=== PATIENT | female | born 1990 | race American Indian/Alaskan Native ===

== ENCOUNTER 2018-04-24 17:05 | Emergency (ER) | payer SELFPAY ==
[2018-04-24 17:19] VITALS: BP 114/75
[2018-04-24 18:03] LABS: HCG Qualitative,Urine Negative (Negative)
[2018-04-24 18:04] LABS: Bacteria,Urine 2+ /HPF (Negative); Bilirubin,Urine NEG (Negative); Blood,Urine NEG (Negative); Color,Urine Amber (Yellow); Mucus,Urine 3+ /HPF
[2018-04-24 18:06] LABS: Urobilinogen,Urine < 2.0 mg/dL (<2.0)
== END 2018-04-24 19:17 | disposition left against medical advice (07) ==
LOC: ED 17:05
DX: R10.9 Unspecified abdominal pain (principal); Z53.21 Procedure and treatment not carried out due to patient leaving prior to being seen by health care provider
CPT/HCPCS: 81001; 81025

== ENCOUNTER 2018-09-18 21:03 | Inpatient (IN) | payer OTHER ==
--- NOTE | 2018-09-18 21:18 | Emergency Department Report ---
Chief Complaint: Abdominal Pain Stated Complaint: ABDOMINAL PAIN, VOMITING Time Seen by Provider: 09/18/18 21:14 - HPI History of Present Illness: This is a 27 y.o. female that presents with abdominal pain and vomiting that started a few hours ago. - ROS Review of Systems: Abdominal pain and vomiting - Exam Vital Signs: Vital Signs 09/18/18 21:15 Temperature 98.2 F Pulse Rate 70 Respiratory 18 Rate Blood Pressure 136/93 [Left] O2 Sat by Pulse 100 Oximetry MSE screening note: Focused history and physical exam performed. Due to findings the following was ordered: Labs ACC for further evaluation. ED Disposition for MSE Condition: Stable Instructions: Abdominal Pain (ED)
[2018-09-18 21:51] LABS: Basophils % (Auto) 0.3 % (0.0-1.8); Eosinophils # (Auto) 0.2 K/mm3 (0.0-0.4); Eosinophils % (Auto) 1.8 % (0.0-4.3); Hematocrit 39.7 % (30.3-42.9); Hemoglobin 13.7 gm/dl (10.1-14.3); Lymphocytes # (Auto) 1.6 K/mm3 (1.2-5.4); Lymphocytes % (Auto) 17.8 % (13.4-35.0); Mean Corpuscular HGB Conc 35 % (30-34); Mean Corpuscular Volume 90 fl (79-97); Monocytes % (Auto) 11.1 % (0.0-7.3); Platelet Count 315 K/mm3 (140-440); Red Cell Distribution Width 13.3 % (13.2-15.2)
[2018-09-18 22:14] LABS: Bilirubin,Urine NEG (Negative); Blood,Urine NEG (Negative); Color,Urine Yellow (Yellow); Mucus,Urine 3+ /HPF; Protein,Urine <15 mg/dL mg/dL (Negative)
[2018-09-18 22:22] LABS: Alanine Aminotransferase 23 units/L (7-56); Albumin 4.1 g/dL (3.9-5); BUN/Creatinine Ratio 22; Blood Urea Nitrogen 13 mg/dL (7-17); Calcium 8.8 mg/dL (8.4-10.2); Hemolysis Index 7
--- NOTE | 2018-09-18 23:30 | Emergency Department Report ---
ED Abdominal Pain HPI - General Chief Complaint: Abdominal Pain Stated Complaint: ABDOMINAL PAIN, VOMITING Time Seen by Provider: 09/18/18 23:15 Source: patient Mode of arrival: Ambulatory Limitations: No Limitations - History of Present Illness Initial Comments: KHADAR is a 27-year-old female that presents to emergency room with complaints of nausea vomiting diarrhea 1 week and abdominal pain that started at 1930 this evening. Patient states she has not seen anybody for her GI symptoms because she thought it was going to go and is on. Patient states she has not held anything down for 7 days. Patient states that the abdominal pain is generalized but is more in her bilateral lower quadrants. Patient states the pain is a 10 out of 10 and is worsening. Patient states the pain is better with rest and worse with movement and palpation. Patient states that the pain is also worse with vomiting. Patient denies fever and chills. MD Complaint: abdominal pain -: Sudden Location: diffuse Radiation: none Severity scale (0 -10): 10 Quality: stabbing Consistency: constant Improves With: rest Worsens With: eating, vomiting, movement Context: sick contacts Associated Symptoms: nausea, vomiting, diarrhea. denies: fever, chills, constipation, dysuria, hematemesis, hematochezia, melena, hematuria, anorexia, syncope - Related Data Home Medications Medication Instructions Recorded Confirmed Last Taken No Known Home Medications [No 09/19/18 09/19/18 Unknown Reported Home Medications] Allergies Allergy/AdvReac Type Severity Reaction Status Date / Time No Known Allergies Allergy Unverified 04/24/18 17:19 ED Review of Systems ROS: Stated complaint: ABDOMINAL PAIN, VOMITING Other details as noted in HPI Constitutional: denies: chills, fever Eyes: denies: eye pain, eye discharge, vision change ENT: denies: ear pain, throat pain Respiratory: denies: cough, shortness of breath, wheezing Cardiovascular: denies: chest pain, palpitations Endocrine: no symptoms reported Gastrointestinal: abdominal pain, nausea, vomiting, diarrhea Genitourinary: denies: urgency, dysuria, discharge Musculoskeletal: denies: back pain, joint swelling, arthralgia Skin: denies: rash, lesions Neurological: denies: headache, weakness, paresthesias Psychiatric: denies: anxiety, depression Hematological/Lymphatic: denies: easy bleeding, easy bruising ED Past Medical Hx - Past Medical History Previous Medical History?: No - Surgical History Past Surgical History?: No - Family History Family history: no significant - Social History Smoking Status: Current Every Day Smoker Substance Use Type: None - Medications Home Medications: Home Medications Medication Instructions Recorded Confirmed Last Taken Type No Known Home Medications [No 09/19/18 09/19/18 Unknown History Reported Home Medications] ED Physical Exam - General Limitations: No Limitations General appearance: alert, in no apparent distress - Head Head exam: Present: atraumatic, normocephalic - Eye Eye exam: Present: normal appearance - ENT ENT exam: Present: mucous membranes dry - Neck Neck exam: Present: normal inspection - Respiratory Respiratory exam: Present: normal lung sounds bilaterally. Absent: respiratory distress - Cardiovascular Cardiovascular Exam: Present: regular rate, normal rhythm. Absent: systolic murmur, diastolic murmur, rubs, gallop - GI/Abdominal GI/Abdominal exam: Present: soft, tenderness (bilateral lower quadrant tenderness to palpation), normal bowel sounds - Extremities Exam Extremities exam: Present: normal inspection - Back Exam Back exam: Present: normal inspection - Neurological Exam Neurological exam: Present: alert, oriented X3 - Psychiatric Psychiatric exam: Present: normal affect, normal mood - Skin Skin exam: Present: warm, dry, intact, normal color. Absent: rash ED Course Vital Signs 09/18/18 09/18/18 09/19/18 21:15 23:07 02:17 Temperature 98.2 F 98.2 F Pulse Rate 70 66 Respiratory 18 16 16 Rate Blood Pressure 136/93 127/92 [Left] O2 Sat by Pulse 100 98 Oximetry - Reevaluation(s) Reevaluation #1: Discussed plan of care and labs and results with patient. Patient agrees with plan of care and admission. Patient admitted to the hospitalist service. 09/19/18 01:30 - Consultations Consultation #1: Hospitalist consulted for admission. Hospitalist admit patient. Hospitalist to assume care patient. 09/19/18 01:37 ED Medical Decision Making - Lab Data Result diagrams: 09/18/18 21:27 09/18/18 21:27 - Radiology Data Radiology results: report reviewed PROCEDURE: CT ABDOMEN PELVIS WO CON TECHNIQUE: Computerized axial tomography of the abdomen and pelvis was performed without intravenous contrast. This study is performed without intravascular contrast material and its sensitivity for abdominal and pelvic pathology, including neoplasms, inflammation, abscess, free fluid, thrombosis, arterial dissection and infarction, is reduced compared with a contrast enhanced study. HISTORY: abd pain COMPARISONS: None . FINDINGS: Lower Lung trimble: No focal abnormalities seen. Upper Abdomen: The liver, gallbladder, the adrenal glands, the unenhanced images of the pancreas and spleen are unremarkable. Kidneys, Ureters and Urinary bladder: No abnormalities are seen. Retroperitoneum: Abdominal aorta appears normal. Nonspecific subcentimeter lymph nodes are seen in the retroperitoneum. No pathologically enlarged lymph nodes are identified. Bowel: The montejo of the right side of the colon, the hepatic flexure, the transverse colon, the splenic flexure and descending colon show diffuse wall thickening. There is prominence of the submucosal layer. The appearance suggest a diffuse nonspecific colitis. I do not see evidence of bowel obstruction. There is no free intraperitoneal gas. A small amount of nonspecific free fluid is present in the cul-de-sac. Normal-appearing appendix is seen in the right lower quadrant. Reproductive organs: Uterus and adnexa are unremarkable. Other: No acute bone abnormalities are seen. IMPRESSION: Abnormal wall thickening prominence of the submucosal layer right side of the colon transverse colon and the descending colon suggesting nonspecific diffuse colitis. No evidence of bowel obstruction. Bowel loops otherwise are unremarkable. No other abnormalities are identified. - Medical Decision Making pt is a 27-year-old female that presents to emergency room with abdominal pain and intractable nausea vomiting. Patient unable to tolerate by mouth intake and has not held any food down for 7 days. Patient was admitted to the hospitalist service for further evaluation and treatment. Patient's CT done and is positive for colitis. Patient's labs unremarkable except for a UTI. Patient given Zosyn. Patient given IV fluids and Zofran - Differential Diagnosis abd pain. n.v.d. gastroentertiis. colitis Critical Care Time: Yes Critical care attestation.: If time is entered above; I have spent that time in minutes in the direct care o f this critically ill patient, excluding procedure time. Critical Care Time: 35 minutes ED Disposition Clinical Impression: Colitis, Dehydration Abdominal pain Qualifiers: Abdominal location: generalized Qualified Code(s): R10.84 - Generalized abdominal pain Intractable nausea and vomiting Qualifiers: Vomiting type: unspecified Qualified Code(s): R11.2 - Nausea with vomiting, unspecified Disposition: OP ADMIT IP TO THIS HOSP Is pt being admited?: Yes Does the pt Need Aspirin: No Condition: Critical Time of Disposition: 01:37
--- NOTE | 2018-09-19 00:31 | Cat Scan Report ---
PROCEDURE: CT ABDOMEN PELVIS WO CON TECHNIQUE: Computerized axial tomography of the abdomen and pelvis was performed without intravenous contrast. This study is performed without intravascular contrast material and its sensitivity for ab dominal and pelvic pathology, including neoplasms, inflammation, abscess, free fluid, thrombosis, art erial dissection and infarction, is reduced compared with a contrast enhanced study. HISTORY: abd pain COMPARISONS: None . FINDINGS: Lower Lung trimble: No focal abnormalities seen. Upper Abdomen: The liver, gallbladder, the adrenal glands, the unenhanced images of the pancreas and spleen are unremarkable. Kidneys, Ureters and Urinary bladder: No abnormalities are seen. Retroperitoneum: Abdominal aorta appears normal. Nonspecific subcentimeter lymph nodes are seen in the retroperitoneum. No pathologically enlarged ly mph nodes are identified. Bowel: The montejo of the right side of the colon, the hepatic flexure, the transverse colon, the sple shelley flexure and descending colon show diffuse wall thickening. There is prominence of the submucosal layer. The appearance suggest a diffuse nonspecific colitis. I do not see evidence of bowel obstructi on. There is no free intraperitoneal gas. A small amount of nonspecific free fluid is present in the cul-de-sac. Normal-appearing appendix is seen in the right lower quadrant. Reproductive organs: Uterus and adnexa are unremarkable. Other: No acute bone abnormalities are seen. IMPRESSION: Abnormal wall thickening prominence of the submucosal layer right side of the colon transverse colon and the descending colon suggesting nonspecific diffuse colitis. No evidence of bowel obstruction. Jay wel loops otherwise are unremarkable. No other abnormalities are identified. This document is electronically signed by Win Lal MD., September 19 2018 12:29:07 AM ET
[2018-09-19] MEDS ORDERED: NACL 0.9% 1000 ML 1,000 ML IV ONE (01:28)
[2018-09-19] MEDS ORDERED: ZOFRAN IV ONE (01:28)
[2018-09-19] MEDS ORDERED: ZOSYN/NS 4.5GM/100ML 4.5 GM/100 ML VIAL IV ONE (01:35)
[2018-09-19] MEDS ORDERED: TYLENOL PO PRN (02:10)
[2018-09-19] MEDS ORDERED: SODIUM CHLORIDE FLUSH SYRINGE 10 ML IV PRN (02:10)
[2018-09-19] MEDS ORDERED: ZOFRAN IV PRN (02:10)
[2018-09-19] MEDS: MORPHINE IV PRN ×2 (02:17→06:44)
--- NOTE | 2018-09-19 02:34 | History and Physical Report ---
<AILIN SAM - Last Filed: 09/19/18 04:33> History of Present Illness Date of examination: 09/19/18 Date of admission: 09/19/2018 Chief complaint: Abdominal pain, nausea and vomiting 1 daily History of present illness: Patient is a 27-year-old female with no prior medical history who presents to the ER with complaints of nausea and vomiting 1 week and abdominal pain starting tonight. Patient states that she has been having nausea and vomiting at home for one week she, relates the symptoms to her child's who had similar symptoms during the week (7-year-old in school and daycare). Patient states that the pain is an intense cramp-like pain, located in the della-umbilical area, associated with significant cramping, patient states she has been unable to tolerate any food or drink for at least a week, she states that she threw up everything she ate. Patient also states that she missed many working days due to the symptoms, she denies any diarrhea, denies any fever, denies chills, denies any recent traveling, reports on ill contact. Pt had a CT scan of the abdomen and pelvis in the ER that showed abnormal wall thickening prominence of the submucosal layer right side of the transverse colon and descending colon suggesting diffuse colitis, patient is admitted for treatment of acute colitis. Past History Past Medical History: No medical history Past Surgical History: No surgical history. denies: valve replacement Social history: no significant social history Family history: no significant family history Medications and Allergies Allergies Allergy/AdvReac Type Severity Reaction Status Date / Time No Known Allergies Allergy Unverified 04/24/18 17:19 Home Medications Medication Instructions Recorded Confirmed Last Taken Type No Known Home Medications [No 09/19/18 09/19/18 Unknown History Reported Home Medications] Active Meds: Active Medications Acetaminophen (Tylenol) 650 mg PO Q4H PRN PRN Reason: Pain MILD(1-3)/Fever >100.5/URBINA Enoxaparin Sodium (Lovenox) 40 mg SUB-Q QDAY TIKI Famotidine (Pepcid) 20 mg IV BID TIKI Dextrose/Sodium Chloride (D5/0.45ns) 1,000 mls @ 75 mls/hr IV DIRECT TIKI Morphine Sulfate (Morphine) 2 mg IV Q4H PRN PRN Reason: Pain, Moderate (4-6) Last Admin: 09/19/18 02:17 Dose: 2 mg Documented by: Ondansetron HCl (Zofran) 4 mg IV Q8H PRN PRN Reason: Nausea And Vomiting Sodium Chloride (Sodium Chloride Flush Syringe 10 Ml) 10 ml IV BID TIKI Sodium Chloride (Sodium Chloride Flush Syringe 10 Ml) 10 ml IV PRN PRN PRN Reason: LINE FLUSH Review of Systems Gastrointestinal: abdominal pain, nausea, vomiting Exam - Constitutional Vitals: Temp Pulse Resp BP Pulse Ox 98.2 F 66 16 127/92 98 09/18/18 23:07 09/18/18 23:07 09/19/18 02:17 09/18/18 23:07 09/18/18 23:07 General appearance: Present: no acute distress - EENT Eyes: Present: EOM intact ENT: hearing intact - Neck Neck: Present: normal ROM - Respiratory Respiratory effort: normal Respiratory: bilateral: CTA - Cardiovascular Rhythm: regular - Extremities Extremities: no ischemia Peripheral Pulses: within normal limits - Abdominal General gastrointestinal: Present: deferred Localized gastrointestinal: tender: LLQ, epigastric periumbilical Female genitourinary: Present: deferred - Rectal Rectal Exam: deferred - Integumentary Integumentary: Present: warm, dry - Musculoskeletal Musculoskeletal: strength equal bilaterally - Psychiatric Psychiatric: appropriate mood/affect - Neurologic Neurologic: moves all extremities Results - Labs CBC & Chem 7: 09/18/18 21:27 09/18/18 21:27 Labs: Laboratory Last Values WBC 8.9 K/mm3 (4.5-11.0) 09/18/18 21: RBC 4.40 M/mm3 (3.65-5.03) 09/18/18 21:27 Hgb 13.7 gm/dl (10.1-14.3) 09/18/18 21: Hct 39.7 % (30.3-42.9) 09/18/18 21: MCV 90 fl (79-97) 09/18/18 21: MCH 31 pg (28-32) 09/18/18 21: MCHC 35 % (30-34) H 09/18/18 21: RDW 13.3 % (13.2-15.2) 09/18/18 21: Plt Count 315 K/mm3 (140-440) 09/18/18 21: Lymph % (Auto) 17.8 % (13.4-35.0) 09/18/18 21: Hall % (Auto) 11.1 % (0.0-7.3) H 09/18/18 21:27 Eos % (Auto) 1.8 % (0.0-4.3) 09/18/18 21: Baso % (Auto) 0.3 % (0.0-1.8) 09/18/18 21: Lymph # 1.6 K/mm3 (1.2-5.4) 09/18/18 21: Hall # 1.0 K/mm3 (0.0-0.8) H 09/18/18 21: Eos # 0.2 K/mm3 (0.0-0.4) 09/18/18 21: Baso # 0.0 K/mm3 (0.0-0.1) 09/18/18 21: Seg Neutrophils % 69.0 % (40.0-70.0) 09/18/18 21: Seg Neutrophils # 6.1 K/mm3 (1.8-7.7) 09/18/18 21: Sodium 141 mmol/L (137-145) 09/18/18 21: Potassium 3.9 mmol/L (3.6-5.0) 09/18/18 21: Chloride 102.5 mmol/L (98-107) 09/18/18 21: Carbon Dioxide 27 mmol/L (22-30) 09/18/18: Anion Gap 15 mmol/L 09/18/18 21: BUN 13 mg/dL (7-17) 09/18/18 21: Creatinine 0.6 mg/dL (0.7-1.2) L 09/18/18 21: Estimated GFR > 60 ml/min 09/18/18 21: BUN/Creatinine Ratio 22 % 09/18/18 21: Glucose 89 mg/dL (65-100) 09/18/18 21: Calcium 8.8 mg/dL (8.4-10.2) 09/18/18 21: Total Bilirubin 0.30 mg/dL (0.1-1.2) 09/18/18 21: AST 23 units/L (5-40) 09/18/18: ALT 23 units/L (7-56) 09/18/18: Alkaline Phosphatase 63 units/L (35-129) 09/18/18: Total Protein 7.4 g/dL (6.3-8.2) 09/18/18: Albumin 4.1 g/dL (3.9-5) 09/18/18: Albumin/Globulin Ratio 1.2 % 09/18/18: Lipase 24 units/L (13-60) 09/18/18: HCG, Qual Negative (Negative) 09/18/18: Urine Color Yellow (Yellow) 09/18/18: Urine Turbidity Slightly-cloudy (Clear) 09/18/18: Urine pH 6.0 (5.0-7.0) 09/18/18: Ur Specific Burwell 1.032 (1.003-1.030) H 09/18/18: Urine Protein <15 mg/dl mg/dL (Negative) 09/18/18: Urine Glucose (UA) Neg mg/dL (Negative) 09/18/18: Urine Ketones Tr mg/dL (Negative) 09/18/18: Urine Blood Neg (Negative) 09/18/18: Urine Nitrite Neg (Negative) 09/18/18: Urine Bilirubin Neg (Negative) 09/18/18: Urine Urobilinogen 4.0 mg/dL (<2.0) 09/18/18: Ur Leukocyte Esterase Tr (Negative) 09/18/18: Urine WBC (Auto) 4.0 /HPF (0.0-6.0) 09/18/18: Urine RBC (Auto) 3.0 /HPF (0.0-6.0) 09/18/18: U Epithel Cells (Auto) 8.0 /HPF (0-13.0) 09/18/18: Urine Mucus 3+ /HPF 09/18/18: Assessment and Plan Assessment and plan: 1. Acute Diffuse colitis (transverse and sigmoid colon) 2. Abdominal pain (likely due to above) 3. Nausea and vomiting (likely due to colitis) 4. Dehydration Plan: Patient is admitted for acute colitis Normal saline 125 per hour for hydration Metronidazole 500 every 8 hours Pain control with morphine PRN Protonix IV daily Consult GI for evaluation DVT prophylaxis with SD Plan of care discussed with patient, voiced understanding Patient's condition and plan of care discussed with Dr. Escoto Advance Directives: Yes VTE prophylaxis?: Mechanical Plan of care discussed with patient/family: Yes <STIVEN ESCOTO - Last Filed: 09/19/18 05:41> History of Present Illness Date of admission: 09/19/18 02:11 Medications and Allergies Active Meds: Active Medications Acetaminophen (Tylenol) 650 mg PO Q4H PRN PRN Reason: Pain MILD(1-3)/Fever >100.5/URBINA Enoxaparin Sodium (Lovenox) 40 mg SUB-Q QDAY TIKI Dextrose/Sodium Chloride (D5/0.45ns) 1,000 mls @ 75 mls/hr IV DIRECT TIKI Last Admin: 09/19/18 05:33 Dose: 75 mls/hr Documented by: Metronidazole (Flagyl 500 Mg/100 Ml) 500 mg in 100 mls @ 100 mls/hr IV Q8HR TIKI; Protocol Levofloxacin/Dextrose (Levaquin 750mg/150ml) 750 mg in 150 mls @ 100 mls/hr IV Q24HR TIKI; Protocol Morphine Sulfate (Morphine) 2 mg IV Q4H PRN PRN Reason: Pain, Moderate (4-6) Last Admin: 09/19/18 02:17 Dose: 2 mg Documented by: Ondansetron HCl (Zofran) 4 mg IV Q8H PRN PRN Reason: Nausea And Vomiting Pantoprazole Sodium (Protonix) 40 mg IV BID TIKI Sodium Chloride (Sodium Chloride Flush Syringe 10 Ml) 10 ml IV BID TIKI Sodium Chloride (Sodium Chloride Flush Syringe 10 Ml) 10 ml IV PRN PRN PRN Reason: LINE FLUSH Exam - Constitutional Vitals: Temp Pulse Resp BP Pulse Ox 98.2 F 66 16 107/66 98 09/18/18 23:07 09/18/18 23:07 09/19/18 02:17 09/19/18 03:00 09/19/18 03:00 Results - Labs CBC & Chem 7: 09/18/18 21:27 09/18/18 21:27 Labs: Laboratory Last Values WBC 8.9 K/mm3 (4.5-11.0) 09/18/18: RBC 4.40 M/mm3 (3.65-5.03) 09/18/18: Hgb 13.7 gm/dl (10.1-14.3) 09/18/18: Hct 39.7 % (30.3-42.9) 09/18/18: MCV 90 fl (79-97) 09/18/18: MCH 31 pg (28-32) 09/18/18: MCHC 35 % (30-34) H 09/18/18: RDW 13.3 % (13.2-15.2) 09/18/18: Plt Count 315 K/mm3 (140-440) 09/18/18: Lymph % (Auto) 17.8 % (13.4-35.0) 09/18/18: Hall % (Auto) 11.1 % (0.0-7.3) H 09/18/18: Eos % (Auto) 1.8 % (0.0-4.3) 09/18/18: Baso % (Auto) 0.3 % (0.0-1.8) 09/18/18: Lymph # 1.6 K/mm3 (1.2-5.4) 09/18/18: Hall # 1.0 K/mm3 (0.0-0.8) H 09/18/18: Eos # 0.2 K/mm3 (0.0-0.4) 09/18/18: Baso # 0.0 K/mm3 (0.0-0.1) 09/18/18: Seg Neutrophils % 69.0 % (40.0-70.0) 09/18/18: Seg Neutrophils # 6.1 K/mm3 (1.8-7.7) 09/18/18: Sodium 141 mmol/L (137-145) 09/18/18: Potassium 3.9 mmol/L (3.6-5.0) 09/18/18: Chloride 102.5 mmol/L (98-107) 09/18/18 21: Carbon Dioxide 27 mmol/L (22-30) 09/18/18 21: Anion Gap 15 mmol/L 09/18/18 21: BUN 13 mg/dL (7-17) 09/18/18 21: Creatinine 0.6 mg/dL (0.7-1.2) L 09/18/18 21: Estimated GFR > 60 ml/min 09/18/18 21: BUN/Creatinine Ratio 22 % 09/18/18 21: Glucose 89 mg/dL (65-100) 09/18/18 21: Calcium 8.8 mg/dL (8.4-10.2) 09/18/18 21: Total Bilirubin 0.30 mg/dL (0.1-1.2) 09/18/18 21: AST 23 units/L (5-40) 09/18/18 21: ALT 23 units/L (7-56) 09/18/18 21: Alkaline Phosphatase 63 units/L (35-129) 09/18/18 21: Total Protein 7.4 g/dL (6.3-8.2) 09/18/18 21: Albumin 4.1 g/dL (3.9-5) 09/18/18 21: Albumin/Globulin Ratio 1.2 % 09/18/18 21: Lipase 24 units/L (13-60) 09/18/18 21: HCG, Qual Negative (Negative) 09/18/18: Urine Color Yellow (Yellow) 09/18/18 21: Urine Turbidity Slightly-cloudy (Clear) 09/18/18 21: Urine pH 6.0 (5.0-7.0) 09/18/18 21: Ur Specific Burwell 1.032 (1.003-1.030) H 09/18/18 21: Urine Protein <15 mg/dl mg/dL (Negative) 09/18/18 21: Urine Glucose (UA) Neg mg/dL (Negative) 09/18/18 21: Urine Ketones Tr mg/dL (Negative) 09/18/18 21: Urine Blood Neg (Negative) 09/18/18 21: Urine Nitrite Neg (Negative) 09/18/18 21: Urine Bilirubin Neg (Negative) 09/18/18 21: Urine Urobilinogen 4.0 mg/dL (<2.0) 09/18/18 21: Ur Leukocyte Esterase Tr (Negative) 09/18/18 21: Urine WBC (Auto) 4.0 /HPF (0.0-6.0) 09/18/18 21: Urine RBC (Auto) 3.0 /HPF (0.0-6.0) 09/18/18 21: U Epithel Cells (Auto) 8.0 /HPF (0-13.0) 09/18/18 21: Urine Mucus 3+ /HPF 09/18/18 21:29 Assessment and Plan Assessment and plan: 27 year year-old woman with no medical problems emergency room with complaints of sharp abdominal pain, diffuse, nausea vomiting and diarrhea 1 week. Physical exam is significant for abdominal tenderness, no rebound or tenderness. Her CAT scan is significant for diffuse colitis, agree with plan as discussed above, in addition start IV morphine, Levaquin, stool cultures, C. difficile
[2018-09-19] MEDS ORDERED: MORPHINE IV PRN (04:57)
[2018-09-19] MEDS: D5/0.45NS 1,000 ML IV SCH ×2 (05:33→22:00)
[2018-09-19] MEDS: FLAGYL 500 MG/100 ML 500 MG/100 ML BAG IV SCH ×3 (06:08→22:00)
--- NOTE | 2018-09-19 09:19 | Gastroenterology Consultation ---
History of Present Illness - Reason for Consult Consult date: 09/19/18 Colitis Requesting physician: DAY HILL III - History of Present Illness The patient is a 27 yo female admitted with acute colitis. She has no GI hx, with generally regular BMs and no chronic pain. Her 7 yo daughter has had a recent episode of severe diarrhea (but no N/V) at home, but had no fevers, chills, and was "getting better." However, about 1 week ago, the patient began to have loose/watery BMs (>7/day) with severe nonbloody emesis; she has associated crampy diffuse abdominal pain, that is pelvic and feels like menstrual cycles. She has been unable to eat for the last several days due to the discomfort (though creatinine normal on admit). Since admit and IV fluids, her nausea is gone and she would like to try PO food/fluids. She has not used any recent abx, nor been hospitalized; there is no hx of C diff. She has had no raw food consumption, nor foreign travel recently. Past History Past Medical History: No medical history Past Surgical History: No surgical history Social history: lives with family, smoking. denies: alcohol abuse, prescription drug abuse Family history: no significant family history Medications and Allergies Allergies Allergy/AdvReac Type Severity Reaction Status Date / Time No Known Allergies Allergy Unverified 04/24/18 17:19 Home Medications Medication Instructions Recorded Confirmed Last Taken Type No Known Home Medications [No 09/19/18 09/19/18 Unknown History Reported Home Medications] Active Meds: Active Medications Acetaminophen (Tylenol) 650 mg PO Q4H PRN PRN Reason: Pain MILD(1-3)/Fever >100.5/URBINA Enoxaparin Sodium (Lovenox) 40 mg SUB-Q QDAY TIKI Dextrose/Sodium Chloride (D5/0.45ns) 1,000 mls @ 75 mls/hr IV DIRECT TIKI Last Admin: 09/19/18 05:33 Dose: 75 mls/hr Documented by: Metronidazole (Flagyl 500 Mg/100 Ml) 500 mg in 100 mls @ 100 mls/hr IV Q8HR TIKI; Protocol Last Admin: 09/19/18 06:08 Dose: 100 mls/hr Documented by: Levofloxacin/Dextrose (Levaquin 750mg/150ml) 750 mg in 150 mls @ 100 mls/hr IV Q24HR TIKI; Protocol Morphine Sulfate (Morphine) 2 mg IV Q4H PRN PRN Reason: Pain, Moderate (4-6) Last Admin: 09/19/18 06:44 Dose: 2 mg Documented by: Ondansetron HCl (Zofran) 4 mg IV Q8H PRN PRN Reason: Nausea And Vomiting Pantoprazole Sodium (Protonix) 40 mg IV BID TIKI Sodium Chloride (Sodium Chloride Flush Syringe 10 Ml) 10 ml IV BID TIKI Sodium Chloride (Sodium Chloride Flush Syringe 10 Ml) 10 ml IV PRN PRN PRN Reason: LINE FLUSH I have reviewed and reconciled medications. Review of Systems - Review of Systems All systems: negative (as noted in the HPI.) Exam - Constitutional Vital Signs: Temp Pulse Resp BP Pulse Ox 98.2 F 56 L 18 111/79 100 09/18/18 23:07 09/19/18 06:53 09/19/18 06:53 09/19/18 06:53 09/19/18 06:53 General appearance: no acute distress - EENT Eyes: PERRL, EOM intact ENT: hearing intact, clear oral mucosa, no thrush - Neck Neck: supple, normal ROM - Respiratory Respiratory effort: normal Respiratory: bilateral: CTA - Cardiovascular Rhythm: regular Heart Sounds: Present: S1 & S2 Extremities: no ischemia, No edema - Gastrointestinal General gastrointestinal: Present: soft, tender (minimal tenderness without peritoneal signs), non-distended - Integumentary Integumentary: Present: clear, warm, dry - Neurologic Neurological: alert and oriented x3 - Labs CBC & Chem 7: 09/18/18 21:27 09/18/18 21:27 Lab Results: Laboratory Results - last 24 hr 09/18/18 09/18/18 09/18/18 21:27 21:27 21:27 WBC 8.9 RBC 4.40 Hgb 13.7 Hct 39.7 MCV 90 MCH 31 MCHC 35 H RDW 13.3 Plt Count 315 Lymph % (Auto) 17.8 [place] % (Auto) 11.1 H Eos % (Auto) 1.8 Baso % (Auto) 0.3 Lymph # 1.6 [place] # 1.0 H Eos # 0.2 Baso # 0.0 Seg Neutrophils % 69.0 Seg Neutrophils # 6.1 Sodium 141 Potassium 3.9 Chloride 102.5 Carbon Dioxide 27 Anion Gap 15 BUN 13 Creatinine 0.6 L Estimated GFR > 60 BUN/Creatinine Ratio 22 Glucose 89 Calcium 8.8 Total Bilirubin 0.30 AST 23 ALT 23 Alkaline Phosphatase 63 Total Protein 7.4 Albumin 4.1 Albumin/Globulin Ratio 1.2 Lipase 24 HCG, Qual Negative Urine Color Urine Turbidity Urine pH Ur Specific [place] Urine Protein Urine Glucose (UA) Urine Ketones Urine Blood Urine Nitrite Urine Bilirubin Urine Urobilinogen Ur Leukocyte Esterase Urine WBC (Auto) Urine RBC (Auto) U Epithel Cells (Auto) Urine Mucus 09/18/18 21:29 WBC RBC Hgb Hct MCV MCH MCHC RDW Plt Count Lymph % (Auto) [place] % (Auto) Eos % (Auto) Baso % (Auto) Lymph # [place] # Eos # Baso # Seg Neutrophils % Seg Neutrophils # Sodium Potassium Chloride Carbon Dioxide Anion Gap BUN Creatinine Estimated GFR BUN/Creatinine Ratio Glucose Calcium Total Bilirubin AST ALT Alkaline Phosphatase Total Protein Albumin Albumin/Globulin Ratio Lipase HCG, Qual Urine Color Yellow Urine Turbidity Slightly-cloudy Urine pH 6.0 Ur Specific [place] 1.032 H Urine Protein <15 mg/dl Urine Glucose (UA) Neg Urine Ketones Tr Urine Blood Neg Urine Nitrite Neg Urine Bilirubin Neg Urine Urobilinogen 4.0 Ur Leukocyte Esterase Tr Urine WBC (Auto) 4.0 Urine RBC (Auto) 3.0 U Epithel Cells (Auto) 8.0 Urine Mucus 3+ Assessment and Plan - Patient Problems (1) Acute colitis Current Visit: Yes Status: Acute Plan to address problem: - Likely infectious, but patient smoker (though I think too diffuse for ischemia) and no hx to suggest IBD. - Agree with stool studies, and flagyl/levofloxacin. - Low risk for C diff given no risk factors; suspect it's viral given preceding illness in her daughter. - Will advance diet; if vomiting controlled, could be d/c on PO abx once stool testing complete and pain/diarrhea improving.
[2018-09-19] MEDS ORDERED: PEPCID IV SCH (10:00)
[2018-09-19] MEDS ORDERED: LEVAQUIN 750MG/150ML 750 MG/150 ML BAG IV SCH (10:00)
[2018-09-19] MEDS: LOVENOX SUB-Q SCH (10:13)
[2018-09-19] MEDS: PROTONIX IV SCH ×2 (10:14→22:04)
[2018-09-19] MEDS: SODIUM CHLORIDE FLUSH SYRINGE 10 ML IV SCH ×2 (10:14→22:24)
[2018-09-19] MEDS ORDERED: PERCOCET 5/325 PO PRN (12:22)
--- NOTE | 2018-09-19 12:22 | Progress Note ---
Assessment and Plan Assessment and plan: --Acute diffuse colitis; Continue IV Levaquin and Flagyl GI evaluation noted, advised regular diet Supportive care --Obesity; BMI 32.4; advised weight reduction when medically stable --Ongoing tobacco use: Advised smoking cessation, nicotine patch as needed; --DVT prophylaxis; Lovenox Increase ambulation, advance diet as tolerated Possible discharge on oral antibiotics tomorrow if stable History Interval history: Patient seen and examined medical records reviewed Admitted with acute diffuse colitis, GI evaluation or tenderness appreciated Recommend regular diet Patient feels slightly better Denies nausea vomiting or diarrhea. Mild abdominal pain Not in acute distress Vital signs reviewed Hospitalist Physical - Constitutional Vitals: Temp Pulse Resp BP Pulse Ox 98.2 F 56 L 18 111/79 100 09/18/18 23:07 09/19/18 06:53 09/19/18 06:53 09/19/18 06:53 09/19/18 06:53 General appearance: Present: no acute distress, well-nourished, obese - EENT Eyes: Present: PERRL, EOM intact - Neck Neck: Present: supple, normal ROM - Respiratory Respiratory effort: normal Respiratory: bilateral: diminished, negative: rales, rhonchi, wheezing - Cardiovascular Rhythm: regular Heart Sounds: Present: S1 & S2 - Extremities Extremities: no ischemia, No edema - Abdominal General gastrointestinal: soft, non-tender, non-distended, normal bowel sounds - Integumentary Integumentary: Present: clear, warm - Psychiatric Psychiatric: appropriate mood/affect, cooperative - Neurologic Neurologic: CNII-XII intact, moves all extremities Results - Labs CBC & Chem 7: 09/18/18 21:27 09/18/18 21:27 Labs: Laboratory Last Values WBC 8.9 K/mm3 (4.5-11.0) 09/18/18 21: RBC 4.40 M/mm3 (3.65-5.03) 09/18/18 21: Hgb 13.7 gm/dl (10.1-14.3) 09/18/18 21:27 Hct 39.7 % (30.3-42.9) 09/18/18 21: MCV 90 fl (79-97) 09/18/18 21: MCH 31 pg (28-32) 09/18/18 21: MCHC 35 % (30-34) H 09/18/18 21: RDW 13.3 % (13.2-15.2) 09/18/18 21: Plt Count 315 K/mm3 (140-440) 09/18/18 21: Lymph % (Auto) 17.8 % (13.4-35.0) 09/18/18 21: [place] % (Auto) 11.1 % (0.0-7.3) H 09/18/18 21: Eos % (Auto) 1.8 % (0.0-4.3) 09/18/18: Baso % (Auto) 0.3 % (0.0-1.8) 09/18/18: Lymph # 1.6 K/mm3 (1.2-5.4) 09/18/18: [place] # 1.0 K/mm3 (0.0-0.8) H 09/18/18: Eos # 0.2 K/mm3 (0.0-0.4) 09/18/18: Baso # 0.0 K/mm3 (0.0-0.1) 09/18/18 21: Seg Neutrophils % 69.0 % (40.0-70.0) 09/18/18: Seg Neutrophils # 6.1 K/mm3 (1.8-7.7) 09/18/18 21: Sodium 141 mmol/L (137-145) 09/18/18 21: Potassium 3.9 mmol/L (3.6-5.0) 09/18/18: Chloride 102.5 mmol/L (98-107) 09/18/18 21: Carbon Dioxide 27 mmol/L (22-30) 09/18/18: Anion Gap 15 mmol/L 09/18/18: BUN 13 mg/dL (7-17) 09/18/18: Creatinine 0.6 mg/dL (0.7-1.2) L 09/18/18 21: Estimated GFR > 60 ml/min 09/18/18 21: BUN/Creatinine Ratio 22 % 09/18/18: Glucose 89 mg/dL (65-100) 09/18/18: Calcium 8.8 mg/dL (8.4-10.2) 09/18/18: Total Bilirubin 0.30 mg/dL (0.1-1.2) 09/18/18: AST 23 units/L (5-40) 09/18/18: ALT 23 units/L (7-56) 09/18/18: Alkaline Phosphatase 63 units/L (35-129) 09/18/18: Total Protein 7.4 g/dL (6.3-8.2) 09/18/18: Albumin 4.1 g/dL (3.9-5) 09/18/18: Albumin/Globulin Ratio 1.2 % 09/18/18: Lipase 24 units/L (13-60) 09/18/18: HCG, Qual Negative (Negative) 09/18/18: Urine Color Yellow (Yellow) 09/18/18: Urine Turbidity Slightly-cloudy (Clear) 09/18/18: Urine pH 6.0 (5.0-7.0) 09/18/18: Ur Specific [place] 1.032 (1.003-1.030) H 09/18/18: Urine Protein <15 mg/dl mg/dL (Negative) 09/18/18: Urine Glucose (UA) Neg mg/dL (Negative) 09/18/18: Urine Ketones Tr mg/dL (Negative) 09/18/18: Urine Blood Neg (Negative) 09/18/18: Urine Nitrite Neg (Negative) 09/18/18: Urine Bilirubin Neg (Negative) 09/18/18: Urine Urobilinogen 4.0 mg/dL (<2.0) 09/18/18: Ur Leukocyte Esterase Tr (Negative) 09/18/18: Urine WBC (Auto) 4.0 /HPF (0.0-6.0) 09/18/18 21: Urine RBC (Auto) 3.0 /HPF (0.0-6.0) 09/18/18: U Epithel Cells (Auto) 8.0 /HPF (0-13.0) 09/18/18:29 Urine Mucus 3+ /HPF 09/18/18 21:29 Active Medications - Current Medications Current Medications: Generic Name Dose Route Start Last Admin Trade Name Freq PRN Reason Stop Dose Admin Acetaminophen 650 mg 09/19/18 02:10 Tylenol PO Q4H PRN Pain MILD(1-3)/Fever >100.5/URBINA Enoxaparin Sodium 40 mg 09/19/18 10:00 09/19/18 10:13 Lovenox SUB-Q 40 mg QDAY TIKI Administration Dextrose/Sodium Chloride 1,000 mls @ 75 mls/hr 09/19/18 03:00 09/19/18 05:33 D5/0.45ns IV 75 mls/hr DIRECT TIKI Administration Metronidazole 500 mg in 100 mls @ 100 mls/hr 09/19/18 06:00 09/19/18 06:08 Flagyl 500 Mg/100 Ml IV 100 mls/hr Q8HR TIKI Administration Protocol Levofloxacin/Dextrose 750 mg in 150 mls @ 100 mls/hr 09/19/18 10:00 09/19/18 10:13 Levaquin 750mg/150ml IV 100 mls/hr Q24HR TIKI Administration Protocol Morphine Sulfate 2 mg 09/19/18 02:10 09/19/18 06:44 Morphine IV 2 mg Q4H PRN Administration Pain, Moderate (4-6) Ondansetron HCl 4 mg 09/19/18 02:10 Zofran IV Q8H PRN Nausea And Vomiting Pantoprazole Sodium 40 mg 09/19/18 10:00 09/19/18 10:14 Protonix IV 40 mg BID TIKI Administration Sodium Chloride 10 ml 09/19/18 10:00 09/19/18 10:14 Sodium Chloride Flush Syringe 10 Ml IV 10 ml BID TIKI Administration Sodium Chloride 10 ml 09/19/18 02:10 Sodium Chloride Flush Syringe 10 Ml IV PRN PRN LINE FLUSH
[2018-09-19] MEDS: DULCOLAX PR SCH (18:06)
[2018-09-20] MEDS: FLAGYL 500 MG/100 ML 500 MG/100 ML BAG IV SCH (05:47)
[2018-09-20 07:41] LABS: Basophils % (Auto) 0.5 % (0.0-1.8); Eosinophils # (Auto) 0.2 K/mm3 (0.0-0.4); Eosinophils % (Auto) 4.4 % (0.0-4.3); Hematocrit 37.8 % (30.3-42.9); Hemoglobin 12.8 gm/dl (10.1-14.3); Lymphocytes # (Auto) 1.4 K/mm3 (1.2-5.4); Lymphocytes % (Auto) 27.8 % (13.4-35.0); Mean Corpuscular HGB Conc 34 % (30-34); Mean Corpuscular Volume 91 fl (79-97); Monocytes # (Auto) 0.7 K/mm3 (0.0-0.8); Monocytes % (Auto) 13.9 % (0.0-7.3); Platelet Count 243 K/mm3 (140-440); Red Blood Count 4.16 M/mm3 (3.65-5.03); Red Cell Distribution Width 13.4 % (13.2-15.2)
[2018-09-20 08:00] LABS: BUN/Creatinine Ratio 3; Blood Urea Nitrogen 3 mg/dL (7-17); Calcium 8.2 mg/dL (8.4-10.2); Hemolysis Index 15
[2018-09-20] MEDS ORDERED: PROTONIX PO SCH (10:00)
[2018-09-20] MEDS ORDERED: LEVAQUIN PO SCH (10:00)
[2018-09-20] MEDS: DULCOLAX PR SCH (10:09)
[2018-09-20] MEDS: LOVENOX SUB-Q SCH (10:10)
[2018-09-20] MEDS: SODIUM CHLORIDE FLUSH SYRINGE 10 ML IV SCH (10:13)
[2018-09-20 12:42] VITALS: BP 99/62
--- NOTE | 2018-09-20 13:24 | Discharge Summary ---
Providers - Providers Date of Admission: 09/19/18 02:11 Date of discharge: 09/20/18 Attending physician: LUIS VILLANUEVA 09/19/18 05:38 Consult to Physician [CONS] Routine Comment: Consulting Provider: MASOOD DUARTE Physician Instructions: Reason For Exam: colitis [facility] Reason for admission: nausea vomiting abdominal pain Condition: Stable Pertinent studies: CT abdomen and pelvis without contrast; abdominal wall thickened submucosal layers right side of the colon and transverse colon and the descending colon suggestive nonspecific diffuse colitis, no evidence of bowel obstruction Hospital course: 27-year-old obese -Italian female patient with no significant past medical history Was admitted through emergency room with nausea vomiting and abdominal pain. CT abdomen and pelvis revealed diffuse colitis admitted to the hospital, symptomatically managed, placed nothing by mouth status, started on IV Levaquin and Flagyl Evaluated by GI, I recommend to start clear liquids advance as tolerated Patient also received pain medications, Symptoms significantly improved Today patient is comfortable no new complaints vital signs stable Tolerating regular diet, ambulates without support Cleared by GI at for discharge and follow up outpatient for further evaluation and management Patient is stable at discharge Discharge diagnosis; --Acute diffuse colitis; s/p IV Levaquin and Flagyl GI evaluated, discharged on oral Levaquin and Flagyl Follow up with GI per schedule --Obesity; BMI 32.4; advised weight reduction when medically stable --Ongoing tobacco use: Advised smoking cessation, nicotine patch as needed; --DVT prophylaxis; Lovenox Increase ambulation, advance diet as tolerated GI cleared for discharge, patient is stable Disposition: DC-01 TO HOME OR SELFCARE Time spent for discharge: 34 min Core Measure Documentation - Palliative Care Palliative Care/ Comfort Measures: Not Applicable - Core Measures Any of the following diagnoses?: none Exam - Constitutional Vitals: Temp Pulse Resp BP Pulse Ox 97.6 F 63 15 99/62 99 09/20/18 12:40 09/20/18 12:40 09/20/18 12:40 09/20/18 12:40 09/20/18 12:40 General appearance: Present: no acute distress, well-nourished - EENT Eyes: Present: PERRL, EOM intact - Neck Neck: Present: supple, normal ROM - Respiratory Respiratory effort: normal Respiratory: bilateral: diminished, negative: rales, rhonchi, wheezing - Cardiovascular Rhythm: regular Heart Sounds: Present: S1 & S2 - Extremities Extremities: no ischemia, No edema - Abdominal General gastrointestinal: Present: soft, non-tender, non-distended, normal bowel sounds - Integumentary Integumentary: Present: clear, warm - Musculoskeletal Musculoskeletal: strength equal bilaterally - Psychiatric Psychiatric: appropriate mood/affect, cooperative - Neurologic Neurologic: CNII-XII intact, moves all extremities Plan Activity: no restrictions Diet: advance as tolerated (advance diet as tolerated.) Additional Instructions: Soft diet and advance as tolerated. Advise smoking cessation, nicotine patch as needed. Advised [id number] pain medications as needed. 3 days work excuse, check with primary care physician for further instruction Follow up with: ROBERT CARLOS MD [Primary Care Provider] - 3-5 Days MASOOD DUARTE MD [Staff Physician] - 7 Days Forms: Work/School Release Form Prescriptions: metroNIDAZOLE [Flagyl TAB] 500 mg PO Q8HR #30 tablet Nicotine [Habitrol] 14 mg TD DAILY #30 patch levoFLOXacin [Levaquin TAB] 750 mg PO Q24HR #10 tablet Pantoprazole [Protonix TAB] 40 mg PO DAILY #30 tablet
[2018-09-20] MEDS ORDERED: FLAGYL PO SCH (14:00)
== END 2018-09-20 17:15 | disposition home or self-care (01) | DRG 392 ==
LOC: ED 21:03 → 3A 09-19 02:11
PROVIDERS: ADMIT Internal Medicine; ATTEND Internal Medicine
DX: K52.89 Other specified noninfective gastroenteritis and colitis (principal); E86.0 Dehydration; E66.9 Obesity, unspecified; F17.200 Nicotine dependence, unspecified, uncomplicated; Z68.32 Body mass index [BMI] 32.0-32.9, adult; Z71.3 Dietary counseling and surveillance; Z71.6 Tobacco abuse counseling
CPT/HCPCS: 36415; 74176; 80048; 80053; 81001; 83690; 84703; 85025; 99406; G0378; C9113; J1650; J1956; J2270; J2405; J2543; J7030

== ENCOUNTER 2019-04-10 22:18 | Emergency (ER) | payer OTHER ==
--- NOTE | 2019-04-10 22:37 | Event Note ---
ED Screening Note Date of service: 04/10/19 Time: 22:32 ED Screening Note: This is a 28 y.o. F. that presents to the ER with abdominal pain and headache x 1 week. Taking NSAIDs with worsening pain. + n/d LMP 03/31/2019 This initial assessment/diagnostic orders/clinical plan/treatment(s) is/are subject to change based on patients health status, clinical progression and re- assessment by fellow clinical providers in the ED. Further treatment and workup at subsequent clinical providers discretion. Patient/guardian urged not to elope from the ED as their condition may be serious if not clinically assessed and managed. Initial orders include: Labs
[2019-04-10 23:19] LABS: Bilirubin,Urine NEG (Negative); Blood,Urine NEG (Negative); Color,Urine Yellow (Yellow); Mucus,Urine FEW /HPF; Protein,Urine <15 mg/dL mg/dL (Negative); Urobilinogen,Urine < 2.0 mg/dL (<2.0)
[2019-04-10 23:19] LABS: Basophils % (Auto) 0.4 % (0.0-1.8); Eosinophils # (Auto) 0.4 K/mm3 (0.0-0.4); Hematocrit 40.4 % (30.3-42.9); Hemoglobin 13.6 gm/dl (10.1-14.3); Lymphocytes # (Auto) 2.8 K/mm3 (1.2-5.4); Lymphocytes % (Auto) 29.4 % (13.4-35.0); Mean Corpuscular HGB Conc 34 % (30-34); Mean Corpuscular Volume 91 fl (79-97); Monocytes # (Auto) 0.9 K/mm3 (0.0-0.8); Monocytes % (Auto) 9.2 % (0.0-7.3); Platelet Count 289 K/mm3 (140-440); Red Blood Count 4.46 M/mm3 (3.65-5.03); Red Cell Distribution Width 13.7 % (13.2-15.2)
[2019-04-10 23:35] LABS: BUN/Creatinine Ratio 28; Blood Urea Nitrogen 14 mg/dL (7-17); Calcium 8.9 mg/dL (8.4-10.2)
[2019-04-10 23:36] LABS: Alanine Aminotransferase 19 units/L (7-56); Hemolysis Index 7
--- NOTE | 2019-04-11 00:06 | Emergency Department Report ---
HPI - General Chief Complaint: Abdominal Pain Time Seen by Provider: 04/10/19 22:32 - HPI HPI: Room 37 The patient is 28-year-old female presenting with a chief complaint of headache and "bubbly stomach." The patient states she's had a constant frontal headache for one week. Patient denies history of preceding trauma or fever. The patient also states today her abdomen was "bubbling." The patient states when she belch it was foul-smelling. Patient admits to flatus and diarrhea. Patient denies any recent antibiotic use. The patient is here with a toddler states she took a Lyft to the hospital ED Past Medical Hx - Past Medical History Hx Asthma: Yes - Surgical History Past Surgical History?: No - Family History Family history: no significant - Social History Smoking Status: Current Some Day Smoker (1/3 pack per day) Substance Use Type: None - Medications Home Medications: Home Medications Medication Instructions Recorded Confirmed Last Taken Type Nicotine [Habitrol] 14 mg TD DAILY #30 patch 09/20/18 Unknown Rx Pantoprazole [Protonix TAB] 40 mg PO DAILY #30 tablet 09/20/18 Unknown Rx levoFLOXacin [Levaquin TAB] 750 mg PO Q24HR #10 tablet 09/20/18 Unknown Rx metroNIDAZOLE [Flagyl TAB] 500 mg PO Q8HR #30 tablet 09/20/18 Unknown Rx Butalb/Acetamin/Caff 50-325-40 2 tab PO Q8HR PRN #20 tablet 04/11/19 Unknown Rx [Fioricet 50-325-40] Famotidine [Pepcid] 20 mg PO BID #20 tablet 04/11/19 Unknown Rx ED Review of Systems ROS: Stated complaint: HEADACHE Other details as noted in HPI Constitutional: denies: fever Eyes: denies: eye pain ENT: denies: throat pain Respiratory: no symptoms reported Cardiovascular: denies: chest pain Endocrine: no symptoms reported Gastrointestinal: diarrhea. denies: abdominal pain Genitourinary: denies: dysuria Musculoskeletal: denies: back pain Neurological: headache Physical Exam - Physical Exam Vital Signs: Vital Signs 04/10/19 22:26 Temperature 98.2 F Pulse Rate 70 Respiratory 18 Rate Blood Pressure 123/80 O2 Sat by Pulse 100 Oximetry Physical Exam: GENERAL: The patient is well-developed well-nourished female lying on stretcher not appearing to be in acute distress. [] HEENT: Normocephalic. Atraumatic. Extraocular motions are intact. Patient has moist mucous membranes. NECK: Supple. No meningitic signs are noted. Trachea midline CHEST/LUNGS: Clear to auscultation. There is no respiratory distress noted. HEART/CARDIOVASCULAR: Regular. There is no tachycardia. There is no gallop rub or murmur. ABDOMEN: Abdomen is soft, nontender. Patient has normal bowel sounds. There is no abdominal distention. SKIN: There is no rash. There is no edema. There is no diaphoresis. NEURO: The patient is awake, alert, and oriented. The patient is cooperative. The patient has no focal neurologic deficits. The patient has normal speech. Cranial nerves II through XII grossly intact, no drift MUSCULOSKELETAL: There is no evidence of acute injury. ED Course Vital Signs 04/10/19 22:26 Temperature 98.2 F Pulse Rate 70 Respiratory 18 Rate Blood Pressure 123/80 O2 Sat by Pulse 100 Oximetry ED Medical Decision Making - Lab Data Result diagrams: 04/10/19 22:50 04/10/19 22:50 Laboratory Tests 04/10/19 04/10/19 04/10/19 22:50 22:50 22:50 WBC 9.4 RBC 4.46 Hgb 13.6 Hct 40.4 MCV 91 MCH 31 MCHC 34 RDW 13.7 Plt Count 289 Lymph % (Auto) 29.4 [place] % (Auto) 9.2 H Eos % (Auto) 4.0 Baso % (Auto) 0.4 Lymph # 2.8 [place] # 0.9 H Eos # 0.4 Baso # 0.0 Seg Neutrophils % 57.0 Seg Neutrophils # 5.4 Sodium 136 L Potassium 4.0 Chloride 100.9 Carbon Dioxide 26 Anion Gap 13 BUN 14 Creatinine 0.5 L Estimated GFR > 60 BUN/Creatinine Ratio 28 Glucose 88 Calcium 8.9 Total Bilirubin 0.20 AST 18 ALT 19 Alkaline Phosphatase 56 Total Protein 7.9 Albumin 4.0 Albumin/Globulin Ratio 1.0 Lipase 22 HCG, Qual Negative Urine Color Urine Turbidity Urine pH Ur Specific [place] Urine Protein Urine Glucose (UA) Urine Ketones Urine Blood Urine Nitrite Urine Bilirubin Urine Urobilinogen Ur Leukocyte Esterase Urine WBC (Auto) Urine RBC (Auto) U Epithel Cells (Auto) Urine Mucus 04/10/19 Unknown WBC RBC Hgb Hct MCV MCH MCHC RDW Plt Count Lymph % (Auto) [place] % (Auto) Eos % (Auto) Baso % (Auto) Lymph # [place] # Eos # Baso # Seg Neutrophils % Seg Neutrophils # Sodium Potassium Chloride Carbon Dioxide Anion Gap BUN Creatinine Estimated GFR BUN/Creatinine Ratio Glucose Calcium Total Bilirubin AST ALT Alkaline Phosphatase Total Protein Albumin Albumin/Globulin Ratio Lipase HCG, Qual Urine Color Yellow Urine Turbidity Slightly-cloudy Urine pH 6.0 Ur Specific [place] 1.016 Urine Protein <15 mg/dl Urine Glucose (UA) Neg Urine Ketones Neg Urine Blood Neg Urine Nitrite Neg Urine Bilirubin Neg Urine Urobilinogen < 2.0 Ur Leukocyte Esterase Tr Urine WBC (Auto) 3.0 Urine RBC (Auto) 3.0 U Epithel Cells (Auto) 5.0 Urine Mucus Few - Radiology Data Radiology results: report reviewed (CT head) CT head (read by radiologist)-no acute intracranial process - Differential Diagnosis headache, intracranial mass, GERD, gastritis Critical care attestation.: If time is entered above; I have spent that time in minutes in the direct care of this critically ill patient, excluding procedure time. ED Disposition Clinical Impression: Headache, Upset stomach Disposition: TO HOME OR SELFCARE Is pt being admited?: No Does the pt Need Aspirin: No Condition: Stable Instructions: Acute Headache (ED) Prescriptions: Butalb/Acetamin/Caff 50-325-40 [Fioricet 50-325-40] 2 tab PO Q8HR PRN #20 tablet PRN Reason: Headache Famotidine [Pepcid] 20 mg PO BID #20 tablet Referrals: PRIMARY CARE, [Primary Care Provider] - 3-5 Days MASOOD WALSH MD [Staff Physician] - 3-5 Days (Dr. Walsh is a neurologist. Please follow up with him for further evaluation) TONNY MONIQUE MD [Staff Physician] - 3-5 Days (Dr. Monique is a measurement and sensing technician. Please follow up with him for further evaluation) Time of Disposition: :
--- NOTE | 2019-04-11 00:40 | Cat Scan Report ---
CT head/brain wo con INDICATION / CLINICAL INFORMATION: headache. TECHNIQUE: All CT scans at this location are performed using CT dose reduction for ALARA by means of automated e xposure control. COMPARISON: None available. FINDINGS: No intracranial hemorrhage or abnormal extra-axial fluid collection. The ventricular system and basilar cisterns are normal. No evidence of mass effect. There is bilateral ethmoid, left frontal and sphenoid mucosal thickening without demonstrated air-flu id levels. No osseous abnormality. IMPRESSION: 1. Sinus disease without air-fluid levels. 2. No acute intracranial abnormality. Signer Name: Arturo Chauhan MD Signed: 04/11/2019 12:36 AM Workstation Name: [id number]
[2019-04-11 02:00] VITALS: BP 138/92
== END 2019-04-11 02:00 | disposition home or self-care (01) ==
LOC: ED 22:18
DX: K30 Functional dyspepsia (principal); R51 Headache; J45.909 Unspecified asthma, uncomplicated; F17.200 Nicotine dependence, unspecified, uncomplicated
CPT/HCPCS: 36415; 70450; 80053; 81001; 83690; 84703; 85025

== ENCOUNTER 2019-04-22 07:06 | Emergency (ER) | payer OTHER ==
[2019-04-22 07:23] VITALS: BP 127/58
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
[2019-04-22] MEDS ORDERED: IBUPROFEN PO ONE (08:15)
== END 2019-04-22 08:29 | disposition home or self-care (01) ==
LOC: ED 07:06
DX: S39.012A Strain of muscle, fascia and tendon of lower back, initial encounter (principal); J45.909 Unspecified asthma, uncomplicated; F17.200 Nicotine dependence, unspecified, uncomplicated; V49.59XA Passenger injured in collision with other motor vehicles in traffic accident, initial encounter; Y93.89 Activity, other specified; Y92.410 Unspecified street and highway as the place of occurrence of the external cause; Y99.8 Other external cause status

== ENCOUNTER 2019-07-29 20:04 | Emergency (ER) | payer SELFPAY ==
[2019-07-29 20:33] VITALS: BP 137/99
[2019-07-29 22:53] LABS: Basophils % (Auto) 0.3 % (0.0-1.8); Eosinophils # (Auto) 0.2 K/mm3 (0.0-0.4); Eosinophils % (Auto) 1.8 % (0.0-4.3); Hematocrit 41.9 % (30.3-42.9); Hemoglobin 13.9 gm/dl (10.1-14.3); Lymphocytes # (Auto) 1.9 K/mm3 (1.2-5.4); Lymphocytes % (Auto) 15.5 % (13.4-35.0); Mean Corpuscular HGB Conc 33 % (30-34); Mean Corpuscular Volume 89 fl (79-97); Monocytes # (Auto) 0.8 K/mm3 (0.0-0.8); Monocytes % (Auto) 6.6 % (0.0-7.3); Platelet Count 336 K/mm3 (140-440)
[2019-07-29 23:09] LABS: Alanine Aminotransferase 14 units/L (7-56); Albumin 4.2 g/dL (3.9-5); BUN/Creatinine Ratio 30; Blood Urea Nitrogen 15 mg/dL (7-17); Calcium 9.3 mg/dL (8.4-10.2); Hemolysis Index 5
[2019-07-29] MEDS ORDERED: ONDANSETRON 4 MG/2 ML INJ IV ONE (23:27)
[2019-07-29] MEDS ORDERED: PANTOPRAZOLE 40 MG INJ IV ONE (23:27)
[2019-07-29] MEDS ORDERED: KETOROLAC 30 MG/1 ML INJ IV ONE (23:31)
--- NOTE | 2019-07-29 23:33 | Emergency Department Report ---
ED Abdominal Pain HPI - General Chief Complaint: Abdominal Pain Stated Complaint: ABD PAIN/VOMITING Time Seen by Provider: 07/29/19 23:23 Source: patient Mode of arrival: Ambulatory Limitations: No Limitations - History of Present Illness Initial Comments: 28-year-old -[place] female patient with history of colitis and GERD presents with sudden onset of epigastric/right upper quadrant pain and 2 episodes of vomiting x 5 PM today. She denies any hematemesis/coffee ground emesis, constipation/melena/hematochezia, or fever/chills/sweats. She rates her current pain as 8/10 in severity. She also admits to history of gallstones without cholectomy. Patient states symptoms started immediately after eating a honeybun. MD Complaint: abdominal pain - Related Data Previous Rx's Medication Instructions Recorded Last Taken Type Nicotine [Habitrol] 14 mg TD DAILY #30 patch 09/20/18 Unknown Rx Pantoprazole [Protonix TAB] 40 mg PO DAILY #30 tablet 09/20/18 Unknown Rx levoFLOXacin [Levaquin TAB] 750 mg PO Q24HR #10 tablet 09/20/18 Unknown Rx metroNIDAZOLE [Flagyl TAB] 500 mg PO Q8HR #30 tablet 09/20/18 Unknown Rx Butalb/Acetamin/Caff 50-325-40 2 tab PO Q8HR PRN #20 tablet 04/11/19 Unknown Rx [Fioricet 50-325-40] Famotidine [Pepcid] 20 mg PO BID #20 tablet 04/11/19 Unknown Rx Cyclobenzaprine [Flexeril] 10 mg PO QHS PRN #20 tablet 04/22/19 Unknown Rx Ibuprofen [Motrin 800 MG tab] 800 mg PO Q8HR PRN #30 tablet 04/22/19 Unknown Rx Butalb/Acetaminophen/Caffeine 1 cap PO Q8HR PRN #10 cap 07/30/19 Unknown Rx [Fioricet 50-300-40 mg CAP] Ondansetron [Zofran Odt] 4 mg PO Q8HR PRN #15 tab.rapdis 07/30/19 Unknown Rx Pantoprazole [Protonix TAB] 20 mg PO QDAY 15 Days #15 tablet. 07/30/19 Unknown Rx Allergies Allergy/AdvReac Type Severity Reaction Status Date / Time No Known Allergies Allergy Verified 04/22/19 07:12 ED Review of Systems ROS: Stated complaint: ABD PAIN/VOMITING Other details as noted in HPI Constitutional: denies: chills, fever ENT: denies: throat pain Respiratory: denies: cough, shortness of breath Cardiovascular: denies: chest pain, palpitations Endocrine: denies: excessive sweating Gastrointestinal: abdominal pain, nausea, vomiting. denies: diarrhea, constipation, hematemesis, melena, hematochezia Genitourinary: denies: urgency, dysuria, frequency, hematuria Musculoskeletal: denies: back pain Skin: denies: rash, lesions Neurological: denies: headache, weakness, paresthesias Hematological/Lymphatic: denies: easy bleeding ED Past Medical Hx - Past Medical History Previous Medical History?: Yes Hx Asthma: Yes - Surgical History Past Surgical History?: No - Social History Smoking Status: Never Smoker Substance Use Type: None - Medications Home Medications: Home Medications Medication Instructions Recorded Confirmed Last Taken Type Nicotine [Habitrol] 14 mg TD DAILY #30 patch 09/20/18 Unknown Rx Pantoprazole [Protonix TAB] 40 mg PO DAILY #30 tablet 09/20/18 Unknown Rx levoFLOXacin [Levaquin TAB] 750 mg PO Q24HR #10 tablet 09/20/18 Unknown Rx metroNIDAZOLE [Flagyl TAB] 500 mg PO Q8HR #30 tablet 09/20/18 Unknown Rx Butalb/Acetamin/Caff 50-325-40 2 tab PO Q8HR PRN #20 tablet 04/11/19 Unknown Rx [Fioricet 50-325-40] Famotidine [Pepcid] 20 mg PO BID #20 tablet 04/11/19 Unknown Rx Cyclobenzaprine [Flexeril] 10 mg PO QHS PRN #20 tablet 04/22/19 Unknown Rx Ibuprofen [Motrin 800 MG tab] 800 mg PO Q8HR PRN #30 tablet 04/22/19 Unknown Rx Butalb/Acetaminophen/Caffeine 1 cap PO Q8HR PRN #10 cap 07/30/19 Unknown Rx [Fioricet 50-300-40 mg CAP] Ondansetron [Zofran Odt] 4 mg PO Q8HR PRN #15 tab.rapdis 07/30/19 Unknown Rx Pantoprazole [Protonix TAB] 20 mg PO QDAY 15 Days #15 tablet. 07/30/19 Unknown Rx ED Physical Exam - General Limitations: No Limitations General appearance: alert, in no apparent distress - Head Head exam: Present: atraumatic, normocephalic - Eye Eye exam: Present: normal appearance - ENT ENT exam: Present: mucous membranes moist - Neck Neck exam: Present: normal inspection - Respiratory Respiratory exam: Present: normal lung sounds bilaterally. Absent: respiratory distress - Cardiovascular Cardiovascular Exam: Present: regular rate, normal rhythm. Absent: systolic murmur, diastolic murmur, rubs, gallop - GI/Abdominal GI/Abdominal exam: Present: soft, tenderness (epigastric and RUQ), normal bowel sounds. Absent: distended, guarding, rebound, rigid - Extremities Exam Extremities exam: Present: normal inspection, full ROM - Back Exam Back exam: Present: normal inspection. Absent: CVA tenderness (R), CVA tenderness (L) - Neurological Exam Neurological exam: Present: alert, oriented X3 - Psychiatric Psychiatric exam: Present: normal affect, normal mood - Skin Skin exam: Present: warm, dry, intact, normal color. Absent: rash ED Course Vital Signs 07/29/19 20:24 Temperature 98.9 F Pulse Rate 76 Respiratory 18 Rate Blood Pressure 137/99 O2 Sat by Pulse 100 Oximetry ED Medical Decision Making - Lab Data Result diagrams: 07/29/19 22:37 07/29/19 22:37 Lab Results 07/29/19 07/29/19 07/29/19 Range/Units 22:37 22:37 22:37 WBC 11.9 H (4.5-11.0) K/mm3 RBC 4.70 (3.65-5.03) M/mm3 Hgb 13.9 (10.1-14.3) gm/dl Hct 41.9 (30.3-42.9) % MCV 89 (79-97) fl MCH 30 (28-32) pg MCHC 33 (30-34) % RDW 14.0 (13.2-15.2) % Plt Count 336 (140-440) K/mm3 Lymph % (Auto) 15.5 (13.4-35.0) % Dickinson % (Auto) 6.6 (0.0-7.3) % Eos % (Auto) 1.8 (0.0-4.3) % Baso % (Auto) 0.3 (0.0-1.8) % Lymph # 1.9 (1.2-5.4) K/mm3 Dickinson # 0.8 (0.0-0.8) K/mm3 Eos # 0.2 (0.0-0.4) K/mm3 Baso # 0.0 (0.0-0.1) K/mm3 Seg Neutrophils % 75.8 H (40.0-70.0) % Seg Neutrophils # 9.1 H (1.8-7.7) K/mm3 Sodium 137 (137-145) mmol/L Potassium 3.7 (3.6-5.0) mmol/L Chloride 98.8 (98-107) mmol/L Carbon Dioxide 27 (22-30) mmol/L Anion Gap 15 mmol/L BUN 15 (7-17) mg/dL Creatinine 0.5 L (0.7-1.2) mg/dL Estimated GFR > 60 ml/min BUN/Creatinine Ratio 30 % Glucose 107 H (65-100) mg/dL Calcium 9.3 (8.4-10.2) mg/dL Total Bilirubin 0.40 (0.1-1.2) mg/dL AST 19 (5-40) units/L ALT 14 (7-56) units/L Alkaline Phosphatase 64 (35-129) units/L Total Protein 8.3 H (6.3-8.2) g/dL Albumin 4.2 (3.9-5) g/dL Albumin/Globulin Ratio 1.0 % Lipase 17 (13-60) units/L HCG, Qual Negative (Negative) - Radiology Data Radiology results: report reviewed ULTRASOUND ABDOMEN, LIMITED (RIGHT UPPER QUADRANT) INDICATION: acute RUQ/epigastric pain. COMPARISON: None available. FINDINGS: Pancreas: Visualized portion shows no significant abnormality. Liver: Normal. Gallbladder: Normal. Bile ducts: Normal. Common Bile Duct measures 3 mm. Free fluid: None. Additional Findings: None. IMPRESSION: 1. No sonographic abnormality of the right upper quadrant. - Medical Decision Making 8-year-old -[place] female patient with history of colitis and GERD presents with sudden onset of epigastric/right upper quadrant pain and 2 episo rafa of vomiting x 5 PM today. Mildly elevated WBCs noted at 11.9. Labs are otherwise wnl. RUQ negative for acute findings. Afetr further investigation, pt admits to high intake of ibuprofen about 4-5 days a week for intermittent headaches. States she has been using ibuprofen for years. Symptoms likely due to gastritis. Advised pt with d/c use of ibuprofen and to avoid other NSAIDs. Recommend f/u with GI and neurology concerning chronic headaches. Vitals are normal. Pt is tolerating food orally. She is nontoxic appearing and stable for discharge home. Discussed strict return precautions in detail with pt who verbalizes understanding. Critical care attestation.: If time is entered above; I have spent that time in minutes in the direct care of this critically ill patient, excluding procedure time. ED Disposition Clinical Impression: Gastritis Qualifiers: Gastritis type: other gastritis Chronicity: acute Gastritis bleeding: presence of bleeding unspecified Qualified Code(s): K29.00 - Acute gastritis without bleeding Disposition: TO HOME OR SELFCARE Is pt being admited?: No Condition: Stable Instructions: Gastritis (ED) Prescriptions: Butalb/Acetaminophen/Caffeine [Fioricet 50-300-40 mg CAP] 1 cap PO Q8HR PRN #10 cap PRN Reason: Headache Pantoprazole [Protonix TAB] 20 mg PO QDAY 15 Days #15 tablet. Ondansetron [Zofran Odt] 4 mg PO Q8HR PRN #15 tab.rapdis PRN Reason: Nausea Referrals: [facility] [Provider Group] - 3-5 Days DIANE VANESSA [PHYSICIAN RETIREMENT ADMINISTRATOR STUDENT] - 3-5 Days
--- NOTE | 2019-07-30 00:24 | Ultrasound Report ---
ULTRASOUND ABDOMEN, LIMITED (RIGHT UPPER QUADRANT) INDICATION: acute RUQ/epigastric pain. COMPARISON: None available. FINDINGS: Pancreas: Visualized portion shows no significant abnormality. Liver: Normal. Gallbladder: Normal. Bile ducts: Normal. Common Bile Duct measures 3 mm. Free fluid: None. Additional Findings: None. IMPRESSION: 1. No sonographic abnormality of the right upper quadrant. Signer Name: Martín Madrid MD Signed: 07/30/2019 12:19 AM Workstation Name: [id number]
== END 2019-07-30 01:30 | disposition home or self-care (01) ==
LOC: ED 20:04
DX: K29.70 Gastritis, unspecified, without bleeding (principal); J45.909 Unspecified asthma, uncomplicated; Z79.1 Long term (current) use of non-steroidal anti-inflammatories (NSAID); Z79.899 Other long term (current) drug therapy
CPT/HCPCS: 36415; 76705; 80053; 83690; 84703; 85025; 96374; 96375; 99284; C9113; J1885; J2405

== ENCOUNTER 2020-07-03 14:08 | Emergency (ER) | payer MEDICAID, OTHER ==
[2020-07-03 14:42] VITALS: BP 114/80
--- NOTE | 2020-07-03 15:15 | Emergency Department Report ---
- General Chief Complaint: Sore Throat Stated Complaint: SORE THROAT,HEADACHE,VOMITING, Time Seen by Provider: 07/03/20 14:44 Source: patient Mode of arrival: Ambulatory Limitations: No Limitations - History of Present Illness MD Complaint: cough, sore throat, rhinorrhea (And wheezing off and on for the last 2 days extremity symptoms with her daughter who also initiated this infect ious process), nasal congestion Severity: mild, moderate Improves With: NSAID Worsens With: nothing Context: sick contacts Associated Symptoms: headache, rhinorrhea, nasal congestion, sore throat, cough. denies: vomiting, confusion, right sweats, epistaxis - Related Data Previous Rx's Medication Instructions Recorded Last Taken Type Nicotine [Habitrol] 14 mg TD DAILY #30 patch 09/20/18 Unknown Rx Pantoprazole [Protonix TAB] 40 mg PO DAILY #30 tablet 09/20/18 Unknown Rx levoFLOXacin [Levaquin TAB] 750 mg PO Q24HR #10 tablet 09/20/18 Unknown Rx metroNIDAZOLE [Flagyl TAB] 500 mg PO Q8HR #30 tablet 09/20/18 Unknown Rx Butalb/Acetamin/Caff 50-325-40 2 tab PO Q8HR PRN #20 tablet 04/11/19 Unknown Rx [Fioricet 50-325-40] Famotidine [Pepcid] 20 mg PO BID #20 tablet 04/11/19 Unknown Rx Cyclobenzaprine [Flexeril] 10 mg PO QHS PRN #20 tablet 04/22/19 Unknown Rx Ibuprofen [Motrin 800 MG tab] 800 mg PO Q8HR PRN #30 tablet 04/22/19 Unknown Rx Butalb/Acetaminophen/Caffeine 1 cap PO Q8HR PRN #10 cap 07/30/19 Unknown Rx [Fioricet 50-300-40 mg CAP] Ondansetron [Zofran Odt] 4 mg PO Q8HR PRN #15 tab.rapdis 07/30/19 Unknown Rx Pantoprazole [Protonix TAB] 20 mg PO QDAY 15 Days #15 tablet. 07/30/19 Unknown Rx Albuterol Mdi (or & Nicu Only) 1 puff IH Q4-6H PRN #1 inha 07/03/20 Unknown Rx [ProAir HFA Inhaler] Azithromycin [Zithromax] 500 mg PO QDAY #3 tablet 07/03/20 Unknown Rx Benzonatate [Tessalon Perles] 100 mg PO Q8HR #20 capsule 07/03/20 Unknown Rx predniSONE [Deltasone] 20 mg PO QDAY #5 tab 07/03/20 Unknown Rx Allergies Allergy/AdvReac Type Severity Reaction Status Date / Time No Known Allergies Allergy Verified 04/22/19 07:12 ED Review of Systems ROS: Stated complaint: SORE THROAT,HEADACHE,VOMITING, Other details as noted in HPI Comment: All other systems reviewed and negative ED Past Medical Hx - Past Medical History Previous Medical History?: Yes Hx Asthma: Yes - Social History Smoking Status: Never Smoker Substance Use Type: None - Medications Home Medications: Home Medications Medication Instructions Recorded Confirmed Last Taken Type Nicotine [Habitrol] 14 mg TD DAILY #30 patch 09/20/18 Unknown Rx Pantoprazole [Protonix TAB] 40 mg PO DAILY #30 tablet 09/20/18 Unknown Rx levoFLOXacin [Levaquin TAB] 750 mg PO Q24HR #10 tablet 09/20/18 Unknown Rx metroNIDAZOLE [Flagyl TAB] 500 mg PO Q8HR #30 tablet 09/20/18 Unknown Rx Butalb/Acetamin/Caff 50-325-40 2 tab PO Q8HR PRN #20 tablet 04/11/19 Unknown Rx [Fioricet 50-325-40] Famotidine [Pepcid] 20 mg PO BID #20 tablet 04/11/19 Unknown Rx Cyclobenzaprine [Flexeril] 10 mg PO QHS PRN #20 tablet 04/22/19 Unknown Rx Ibuprofen [Motrin 800 MG tab] 800 mg PO Q8HR PRN #30 tablet 04/22/19 Unknown Rx Butalb/Acetaminophen/Caffeine 1 cap PO Q8HR PRN #10 cap 07/30/19 Unknown Rx [Fioricet 50-300-40 mg CAP] Ondansetron [Zofran Odt] 4 mg PO Q8HR PRN #15 tab.rapdis 07/30/19 Unknown Rx Pantoprazole [Protonix TAB] 20 mg PO QDAY 15 Days #15 tablet. 07/30/19 Unknown Rx Albuterol Mdi (or & Nicu Only) 1 puff IH Q4-6H PRN #1 inha 07/03/20 Unknown Rx [ProAir HFA Inhaler] Azithromycin [Zithromax] 500 mg PO QDAY #3 tablet 07/03/20 Unknown Rx Benzonatate [Tessalon Perles] 100 mg PO Q8HR #20 capsule 07/03/20 Unknown Rx predniSONE [Deltasone] 20 mg PO QDAY #5 tab 07/03/20 Unknown Rx ED Physical Exam - General Limitations: No Limitations General appearance: alert, in no apparent distress - Head Head exam: Present: atraumatic, normocephalic - Eye Eye exam: Present: normal appearance - ENT ENT exam: Present: mucous membranes moist - Neck Neck exam: Present: normal inspection - Respiratory Respiratory exam: Present: normal lung sounds bilaterally, rhonchi. Absent: respiratory distress, accessory muscle use, decreased breath sounds, prolonged expiratory - Cardiovascular Cardiovascular Exam: Present: regular rate, normal rhythm. Absent: systolic murmur, diastolic murmur, rubs, gallop - GI/Abdominal GI/Abdominal exam: Present: soft, normal bowel sounds - Extremities Exam Extremities exam: Present: normal inspection - Back Exam Back exam: Present: normal inspection - Neurological Exam Neurological exam: Present: alert, oriented X3 - Psychiatric Psychiatric exam: Present: normal affect, normal mood - Skin Skin exam: Present: warm, dry, intact, normal color. Absent: rash ED Course Vital Signs 07/03/20 14:38 Temperature 97.9 F Pulse Rate 66 Respiratory 18 Rate Blood Pressure 114/80 O2 Sat by Pulse 100 Oximetry ED Medical Decision Making - Medical Decision Making This patient presents with acute cough, most consistent with bronchitis/. Differential diagnosis includes viral syndrome, hyperreactive airway disease, COVID-19. Presentation not consistent with acute bacterial pneumonia, influenza, asthma, transient airway hyperresponsiveness. Presentation not consistent with chronic causes of cough (including GERD, asthma, postnasal discharge, medication side effect, CHF, lung cancer or mass). patient presents with symptoms suspicious for likely viral upper respiratory tract infection. Differential includes bacterial pneumonia, sinusitis, allergic rhinitis, Do not suspect underlying Cardiopulmonary process. I considered but think unlikely dangerous cause of this patient symptoms to include acute coronary syndrome, CHF or COPD exacerbations, pneumonia, pneumothorax. Patient is nontoxic appearing and not in need of emergent medical intervention. Plan: Reassurance, reassessment, [id number] medications, discharge with PCP follow-up Critical care attestation.: If time is entered above; I have spent that time in minutes in the direct care of this critically ill patient, excluding procedure time. ED Disposition Clinical Impression: Bronchitis, Cough, Pharyngitis Disposition: [id number] TO HOME OR SELFCARE Is pt being admited?: No Does the pt Need Aspirin: No Condition: Stable Instructions: Cough, Adult, [id number], Pharyngitis, How to Use a Metered Dose Inhaler, Upper Respiratory Infection, Adult, [id number], How to Use a Dry Powder Inhaler, [id number], Chronic Bronchitis (ED) Prescriptions: predniSONE [Deltasone] 20 mg PO QDAY #5 tab Albuterol Mdi (or & Nicu Only) [ProAir HFA Inhaler] 1 puff IH Q4-6H PRN #1 inha PRN Reason: Cough Benzonatate [Tessalon Perles] 100 mg PO Q8HR #20 capsule Azithromycin [Zithromax] 500 mg PO QDAY #3 tablet Referrals: [facility] [Provider Group] - 3-5 Days
== END 2020-07-03 15:47 | disposition home or self-care (01) ==
LOC: ED 14:08
DX: J40 Bronchitis, not specified as acute or chronic (principal); J02.9 Acute pharyngitis, unspecified; R05 Cough; Z79.1 Long term (current) use of non-steroidal anti-inflammatories (NSAID); Z79.2 Long term (current) use of antibiotics; Z79.899 Other long term (current) drug therapy
CPT/HCPCS: 99282

== ENCOUNTER 2020-08-07 13:49 | Emergency (ER) | payer MEDICAID ==
[2020-08-07 13:54] VITALS: BP 134/91
--- NOTE | 2020-08-07 14:43 | Emergency Department Report ---
ED General Adult HPI - General Chief complaint: Dizziness Stated complaint: WHEEZING/HEADACHE/DIZZY Time Seen by Provider: 08/07/20 14:30 Source: patient Mode of arrival: Ambulatory Limitations: No Limitations - History of Present Illness Initial comments: pt is a 29 yo female who presents to the ED with c/o exacerbation of her asthma for the last couple of days. she states it is worse at night and when she first wake up in the morning. she denies any cough, fever, n/v/d. she states that she feels when she starts wheezing. she states she uses an inhaler with some improvement. she denies any other PMHx. no allergies to meds. - Related Data Previous Rx's Medication Instructions Recorded Last Taken Type Nicotine [Habitrol] 14 mg TD DAILY #30 patch 09/20/18 Unknown Rx Pantoprazole [Protonix TAB] 40 mg PO DAILY #30 tablet 09/20/18 Unknown Rx levoFLOXacin [Levaquin TAB] 750 mg PO Q24HR #10 tablet 09/20/18 Unknown Rx metroNIDAZOLE [Flagyl TAB] 500 mg PO Q8HR #30 tablet 09/20/18 Unknown Rx Butalb/Acetamin/Caff 50-325-40 2 tab PO Q8HR PRN #20 tablet 04/11/19 Unknown Rx [Fioricet 50-325-40] Famotidine [Pepcid] 20 mg PO BID #20 tablet 04/11/19 Unknown Rx Cyclobenzaprine [Flexeril] 10 mg PO QHS PRN #20 tablet 04/22/19 Unknown Rx Ibuprofen [Motrin 800 MG tab] 800 mg PO Q8HR PRN #30 tablet 04/22/19 Unknown Rx Butalb/Acetaminophen/Caffeine 1 cap PO Q8HR PRN #10 cap 07/30/19 Unknown Rx [Fioricet 50-300-40 mg CAP] Ondansetron [Zofran Odt] 4 mg PO Q8HR PRN #15 tab.rapdis 07/30/19 Unknown Rx Pantoprazole [Protonix TAB] 20 mg PO QDAY 15 Days #15 tablet. 07/30/19 Unknown Rx Albuterol Mdi (or & Nicu Only) 1 puff IH Q4-6H PRN #1 inha 07/03/20 Unknown Rx [ProAir HFA Inhaler] Azithromycin [Zithromax] 500 mg PO QDAY #3 tablet 07/03/20 Unknown Rx Benzonatate [Tessalon Perles] 100 mg PO Q8HR #20 capsule 07/03/20 Unknown Rx predniSONE [Deltasone] 20 mg PO QDAY #5 tab 07/03/20 Unknown Rx Cetirizine HCl [Zyrtec 10mg tab] 10 mg PO DAILY #14 tablet 08/07/20 Unknown Rx Prednisone [predniSONE 10 mg 10 mg PO .TAPER #1 tab.ds.pk 08/07/20 Unknown Rx (6-Day Pack, 21 Tabs)] Allergies Allergy/AdvReac Type Severity Reaction Status Date / Time No Known Allergies Allergy Verified 04/22/19 07:12 ED Review of Systems ROS: Stated complaint: WHEEZING/HEADACHE/DIZZY Other details as noted in HPI Comment: All other systems reviewed and negative ED Past Medical Hx - Past Medical History Previous Medical History?: Yes Hx Asthma: Yes - Surgical History Past Surgical History?: No - Social History Smoking Status: Current Every Day Smoker Substance Use Type: None - Medications Home Medications: Home Medications Medication Instructions Recorded Confirmed Last Taken Type Nicotine [Habitrol] 14 mg TD DAILY #30 patch 09/20/18 Unknown Rx Pantoprazole [Protonix TAB] 40 mg PO DAILY #30 tablet 09/20/18 Unknown Rx levoFLOXacin [Levaquin TAB] 750 mg PO Q24HR #10 tablet 09/20/18 Unknown Rx metroNIDAZOLE [Flagyl TAB] 500 mg PO Q8HR #30 tablet 09/20/18 Unknown Rx Butalb/Acetamin/Caff 50-325-40 2 tab PO Q8HR PRN #20 tablet 04/11/19 Unknown Rx [Fioricet 50-325-40] Famotidine [Pepcid] 20 mg PO BID #20 tablet 04/11/19 Unknown Rx Cyclobenzaprine [Flexeril] 10 mg PO QHS PRN #20 tablet 04/22/19 Unknown Rx Ibuprofen [Motrin 800 MG tab] 800 mg PO Q8HR PRN #30 tablet 04/22/19 Unknown Rx Butalb/Acetaminophen/Caffeine 1 cap PO Q8HR PRN #10 cap 07/30/19 Unknown Rx [Fioricet 50-300-40 mg CAP] Ondansetron [Zofran Odt] 4 mg PO Q8HR PRN #15 tab.rapdis 07/30/19 Unknown Rx Pantoprazole [Protonix TAB] 20 mg PO QDAY 15 Days #15 tablet.dr 07/30/19 Unknown Rx Albuterol Mdi (or & Nicu Only) 1 puff IH Q4-6H PRN #1 inha 07/03/20 Unknown Rx [ProAir HFA Inhaler] Azithromycin [Zithromax] 500 mg PO QDAY #3 tablet 07/03/20 Unknown Rx Benzonatate [Tessalon Perles] 100 mg PO Q8HR #20 capsule 07/03/20 Unknown Rx predniSONE [Deltasone] 20 mg PO QDAY #5 tab 07/03/20 Unknown Rx Cetirizine HCl [Zyrtec 10mg tab] 10 mg PO DAILY #14 tablet 08/07/20 Unknown Rx Prednisone [predniSONE 10 mg 10 mg PO .TAPER #1 tab.ds.pk 08/07/20 Unknown Rx (6-Day Pack, 21 Tabs)] ED Physical Exam - General Limitations: No Limitations General appearance: alert, in no apparent distress - Head Head exam: Present: atraumatic, normocephalic - Eye Eye exam: Present: normal appearance - ENT ENT exam: Present: mucous membranes moist - Respiratory Respiratory exam: Present: normal lung sounds bilaterally. Absent: respiratory distress, wheezes, rales, rhonchi, stridor, chest wall tenderness, accessory muscle use, decreased breath sounds, prolonged expiratory - Cardiovascular Cardiovascular Exam: Present: regular rate, normal rhythm, normal heart sounds. Absent: systolic murmur, diastolic murmur, rubs, gallop - Neurological Exam Neurological exam: Present: alert, oriented X3 - Psychiatric Psychiatric exam: Present: normal affect, normal mood - Skin Skin exam: Present: warm, dry, intact ED Course Vital Signs 08/07/20 13:51 Temperature 98.6 F Pulse Rate 99 H Respiratory 18 Rate Blood Pressure 134/91 O2 Sat by Pulse 100 Oximetry ED Medical Decision Making - Medical Decision Making pt is a 29 yo female who presents to the ED with c/o exacerbation of her asthma for the last couple of days. she states it is worse at night and when she first wake up in the morning. she denies any cough, fever, n/v/d. she states that she feels when she starts wheezing. she states she uses an inhaler with some improvement. she denies any other PMHx. no allergies to meds. Vitals are stable. Breath sounds are clear on exam, no wheezing, no rales, no rhonchi, no respiratory distress, no accessory muscle use, no stridor. Patient has no clinical signs or symptoms of bacterial pneumonia or bacterial bronchitis. She has no clinical signs of acute significant asthma exacerbation at this time. Patient given prescription for prednisone and Zyrtec. Advised patient please take medication as prescribed. please continue to use your inhaler every 4 hours as needed for wheezing. follow up with a primary care doctor. return to the emergency room for any new or worsening symptoms. Critical care attestation.: If time is entered above; I have spent that time in minutes in the direct care of this critically ill patient, excluding procedure time. ED Disposition Clinical Impression: Asthma Qualifiers: Asthma severity: unspecified severity Asthma persistence: unspecified Asthma complication type: uncomplicated Qualified Code(s): J45.909 - Unspecified asthma, uncomplicated Disposition: - TO HOME OR SELFCARE Is pt being admited?: No Does the pt Need Aspirin: No Condition: Stable Instructions: Asthma, Adult, Asthma (ED) Additional Instructions: please take medication as prescribed. please continue to use your inhaler every 4 hours as needed for wheezing. follow up with a primary care doctor. return to the emergency room for any new or worsening symptoms. Prescriptions: Prednisone [predniSONE 10 mg (6-Day Pack, 21 Tabs)] 10 mg PO .TAPER #1 tab.ds.pk Cetirizine HCl [Zyrtec 10mg tab] 10 mg PO DAILY #14 tablet Referrals: ZENY HAWKINS MD [Staff Physician] - 3-5 Days [facility] [Provider Group] - 3-5 Days [facility], [LAB/CONTRACT] - 3-5 Days Time of Disposition: 14:41 Print Language: TAJIK
== END 2020-08-07 14:55 | disposition home or self-care (01) ==
LOC: ED 13:49
DX: J45.909 Unspecified asthma, uncomplicated (principal); F17.200 Nicotine dependence, unspecified, uncomplicated; Z79.2 Long term (current) use of antibiotics; Z79.899 Other long term (current) drug therapy
CPT/HCPCS: 99281

== ENCOUNTER 2021-02-18 03:09 | Emergency (ER) | payer MEDICAID ==
[2021-02-18 04:42] VITALS: BP 133/88
--- NOTE | 2021-02-18 06:40 | Emergency Department Report ---
- General Chief Complaint: Wound/Laceration Stated Complaint: LT TOE POSS INFECTION Time Seen by Provider: 02/18/21 06:28 Source: patient Mode of arrival: Ambulatory Limitations: No Limitations - History of Present Illness Initial Comments: 30-year-old -[place] female went to the nurse line and had a pedicure 2 weeks ago but a day later she had some swelling and pain to her toes and continued to throb since the onset and then began to develop wound with some some discharge which she thought was spontaneously resolved but has yet to do so so she presents emergency department seeking further valuation treatment options Extremity Location: Left: Foot Place: home Associated Symptoms: none - Related Data Previous Rx's Medication Instructions Recorded Last Taken Type Nicotine [Habitrol] 14 mg TD DAILY #30 patch 09/20/18 Unknown Rx Pantoprazole [Protonix TAB] 40 mg PO DAILY #30 tablet 09/20/18 Unknown Rx levoFLOXacin [Levaquin TAB] 750 mg PO Q24HR #10 tablet 09/20/18 Unknown Rx metroNIDAZOLE [Flagyl TAB] 500 mg PO Q8HR #30 tablet 09/20/18 Unknown Rx Butalb/Acetamin/Caff 50-325-40 2 tab PO Q8HR PRN #20 tablet 04/11/19 Unknown Rx [Fioricet 50-325-40] Famotidine [Pepcid] 20 mg PO BID #20 tablet 04/11/19 Unknown Rx Cyclobenzaprine [Flexeril] 10 mg PO QHS PRN #20 tablet 04/22/19 Unknown Rx Ibuprofen [Motrin 800 MG tab] 800 mg PO Q8HR PRN #30 tablet 04/22/19 Unknown Rx Butalb/Acetaminophen/Caffeine 1 cap PO Q8HR PRN #10 cap 07/30/19 Unknown Rx [Fioricet 50-300-40 mg CAP] Ondansetron [Zofran Odt] 4 mg PO Q8HR PRN #15 tab.rapdis 07/30/19 Unknown Rx Pantoprazole [Protonix TAB] 20 mg PO QDAY 15 Days #15 tablet. 07/30/19 Unknown Rx Albuterol Mdi (or & Nicu Only) 1 puff IH Q4-6H PRN #1 inha 07/03/20 Unknown Rx [ProAir HFA Inhaler] Azithromycin [Zithromax] 500 mg PO QDAY #3 tablet 07/03/20 Unknown Rx Benzonatate [Tessalon Perles] 100 mg PO Q8HR #20 capsule 07/03/20 Unknown Rx predniSONE [Deltasone] 20 mg PO QDAY #5 tab 07/03/20 Unknown Rx Cetirizine HCl [Zyrtec 10mg tab] 10 mg PO DAILY #14 tablet 08/07/20 Unknown Rx Prednisone [predniSONE 10 mg 10 mg PO .TAPER #1 tab.ds.pk 08/07/20 Unknown Rx (6-Day Pack, 21 Tabs)] Mupirocin [Bactroban 2%] 1 applic TP TID #1 tube 02/18/21 Unknown Rx cephALEXin [Keflex] 500 mg PO Q8HR #30 cap 02/18/21 Unknown Rx Allergies Allergy/AdvReac Type Severity Reaction Status Date / Time No Known Allergies Allergy Verified 04/22/19 07:12 ED Review of Systems ROS: Stated complaint: LT TOE POSS INFECTION Other details as noted in HPI Comment: All other systems reviewed and negative ED Past Medical Hx - Past Medical History Previous Medical History?: Yes Hx Asthma: Yes - Surgical History Past Surgical History?: No - Social History Smoking Status: Never Smoker Substance Use Type: None - Medications Home Medications: Home Medications Medication Instructions Recorded Confirmed Last Taken Type Nicotine [Habitrol] 14 mg TD DAILY #30 patch 09/20/18 Unknown Rx Pantoprazole [Protonix TAB] 40 mg PO DAILY #30 tablet 09/20/18 Unknown Rx levoFLOXacin [Levaquin TAB] 750 mg PO Q24HR #10 tablet 09/20/18 Unknown Rx metroNIDAZOLE [Flagyl TAB] 500 mg PO Q8HR #30 tablet 09/20/18 Unknown Rx Butalb/Acetamin/Caff 50-325-40 2 tab PO Q8HR PRN #20 tablet 04/11/19 Unknown Rx [Fioricet 50-325-40] Famotidine [Pepcid] 20 mg PO BID #20 tablet 04/11/19 Unknown Rx Cyclobenzaprine [Flexeril] 10 mg PO QHS PRN #20 tablet 04/22/19 Unknown Rx Ibuprofen [Motrin 800 MG tab] 800 mg PO Q8HR PRN #30 tablet 04/22/19 Unknown Rx Butalb/Acetaminophen/Caffeine 1 cap PO Q8HR PRN #10 cap 07/30/19 Unknown Rx [Fioricet 50-300-40 mg CAP] Ondansetron [Zofran Odt] 4 mg PO Q8HR PRN #15 tab.rapdis 07/30/19 Unknown Rx Pantoprazole [Protonix TAB] 20 mg PO QDAY 15 Days #15 tablet.dr 07/30/19 Unknown Rx Albuterol Mdi (or & Nicu Only) 1 puff IH Q4-6H PRN #1 inha 07/03/20 Unknown Rx [ProAir HFA Inhaler] Azithromycin [Zithromax] 500 mg PO QDAY #3 tablet 07/03/20 Unknown Rx Benzonatate [Tessalon Perles] 100 mg PO Q8HR #20 capsule 07/03/20 Unknown Rx predniSONE [Deltasone] 20 mg PO QDAY #5 tab 07/03/20 Unknown Rx Cetirizine HCl [Zyrtec 10mg tab] 10 mg PO DAILY #14 tablet 08/07/20 Unknown Rx Prednisone [predniSONE 10 mg 10 mg PO .TAPER #1 tab.ds.pk 08/07/20 Unknown Rx (6-Day Pack, 21 Tabs)] Mupirocin [Bactroban 2%] 1 applic TP TID #1 tube 02/18/21 Unknown Rx cephALEXin [Keflex] 500 mg PO Q8HR #30 cap 02/18/21 Unknown Rx ED Physical Exam - General Limitations: No Limitations General appearance: alert, in no apparent distress - Head Head exam: Present: atraumatic, normocephalic - Eye Eye exam: Present: normal appearance, PERRL, EOMI Pupils: Present: normal accommodation - ENT ENT exam: Present: normal exam, normal orophraynx, mucous membranes moist, TM's normal bilaterally - Neck Neck exam: Present: normal inspection, full ROM - Respiratory Respiratory exam: Present: normal lung sounds bilaterally. Absent: respiratory distress, wheezes, rales, rhonchi, chest wall tenderness, accessory muscle use - Cardiovascular Cardiovascular Exam: Present: regular rate, normal rhythm. Absent: systolic murmur, diastolic murmur, rubs, gallop - GI/Abdominal GI/Abdominal exam: Present: soft, normal bowel sounds. Absent: tenderness, guarding, hyperactive bowel sounds, hypoactive bowel sounds, organomegaly - Extremities Exam Extremities exam: Present: normal inspection, tenderness (Wound to the left third toe most scant discharge swelling noted mild redness no lymphangitis no lymphadenopathy), normal capillary refill. Absent: pedal edema, joint swelling - Back Exam Back exam: Present: normal inspection - Neurological Exam Neurological exam: Present: alert, oriented X3, CN II-XII intact, normal gait - Psychiatric Psychiatric exam: Present: normal affect, normal mood. Absent: anxious, flat affect, suicidal ideation - Skin Skin exam: Present: warm, dry, intact, normal color. Absent: rash, cyanosis, pallor, abrasion, ecchymosis ED Course Vital Signs 02/18/21 04:38 Temperature 98.7 F Pulse Rate 69 Respiratory 16 Rate Blood Pressure 133/88 O2 Sat by Pulse 100 Oximetry Critical care attestation.: If time is entered above; I have spent that time in minutes in the direct care of this critically ill patient, excluding procedure time. ED Disposition Clinical Impression: Wound, open, toe Disposition: 01 HOME / SELF CARE / HOMELESS Is pt being admited?: No Does the pt Need Aspirin: No Condition: Stable Instructions: Wound Care, Adult Prescriptions: Mupirocin [Bactroban 2%] 1 applic TP TID #1 tube cephALEXin [Keflex] 500 mg PO Q8HR #30 cap Referrals: [facility] [Provider Group] - 3-5 Days [facility], [Primary Care Provider] - 3-5 Days
== END 2021-02-18 06:52 | disposition home or self-care (01) ==
LOC: ED 03:09
DX: S91.105A Unspecified open wound of left lesser toe(s) without damage to nail, initial encounter (principal); J45.909 Unspecified asthma, uncomplicated; Z79.899 Other long term (current) drug therapy; X58.XXXA Exposure to other specified factors, initial encounter; Y93.89 Activity, other specified; Y92.89 Other specified places as the place of occurrence of the external cause; Y99.8 Other external cause status
CPT/HCPCS: 99282

== ENCOUNTER 2021-10-07 08:31 | Emergency (ER) | payer MEDICAID ==
[2021-10-07 08:42] VITALS: BP 151/98
[2021-10-07] MEDS ORDERED: ACETAMINOPHEN 325 MG TAB PO ONE (09:09)
--- NOTE | 2021-10-07 09:10 | Emergency Department Report ---
ED HPI - General Chief complaint: Vaginal Bleeding Stated complaint: /POSSIBLE MISCARRIAGE Time Seen by Provider: 10/07/21 08:43 Source: patient Mode of arrival: Ambulatory Limitations: No Limitations - History of Present Illness Initial comments: 30-year-old female who denies any significant past medical history presents to the ER today with complaints of vaginal spotting and . Patient states that she started with vaginal bleeding on Friday. She states that she noticed it when she wiped after urinating. She states that Friday and Friday she did not have any bleeding but then she started spotting on and has been spotting since. She states that she went to [place] urgent care on Friday where they confirmed that she was . She reports mild intermittent lower abdominal cramping. She denies any UTI symptoms or any abnormal vaginal discharge, fever or chills. She is G2, P1 Ab0. She thinks her last normal menstrual cycle was August 13. She is not currently on any control. MD Complaint: vaginal bleeding - Related Data Previous Rx's Medication Instructions Recorded Last Taken Type cephALEXin [Keflex] 500 mg PO Q8HR #21 cap 10/07/21 Unknown Rx Allergies Allergy/AdvReac Type Severity Reaction Status Date / Time No Known Allergies Allergy Verified 09/19/21 09:38 ED Review of Systems ROS: Stated complaint: /POSSIBLE MISCARRIAGE Other details as noted in HPI Comment: All other systems reviewed and negative Constitutional: denies: chills, fever, weakness Eyes: denies: eye pain, eye discharge, vision change ENT: denies: ear pain, throat pain, dental pain, hearing loss, epistaxis, congestion Respiratory: denies: cough, shortness of breath, wheezing Cardiovascular: denies: chest pain, palpitations Endocrine: no symptoms reported Gastrointestinal: abdominal pain. denies: nausea, vomiting, diarrhea, constipation, hematemesis, melena, hematochezia Genitourinary: other (Vaginal bleeding). denies: urgency, dysuria, frequency, hematuria, discharge Musculoskeletal: denies: back pain, joint swelling, arthralgia Skin: denies: rash, lesions, change in color, change in hair/nails, pruritus Neurological: denies: headache, weakness, numbness, paresthesias, confusion, abnormal gait, vertigo Psychiatric: denies: anxiety, depression, auditory hallucinations, visual hallucinations, homicidal thoughts, suicidal thoughts Hematological/Lymphatic: denies: easy bleeding, swollen glands ED Past Medical Hx - Past Medical History Hx Asthma: Yes - Social History Smoking Status: Current Every Day Smoker - Medications Home Medications: Home Medications Medication Instructions Recorded Confirmed Last Taken Type cephALEXin [Keflex] 500 mg PO Q8HR #21 cap 10/07/21 Unknown Rx ED Physical Exam - General Limitations: No Limitations ED Course Vital Signs 10/07/21 08:41 Temperature 98.7 F Pulse Rate 72 Respiratory 18 Rate Blood Pressure 151/98 [Right] O2 Sat by Pulse 100 Oximetry ED Medical Decision Making - Lab Data Result diagrams: 10/07/21 09:18 10/07/21 09:18 Laboratory Tests 10/07/21 10/07/21 10/07/21 09:18 09:18 09:18 WBC 12.5 H RBC 4.29 Hgb 12.9 Hct 38.2 MCV 89 MCH 30 MCHC 34 RDW 14.3 Plt Count 321 Lymph % (Auto) 21.8 [place] % (Auto) 7.7 H Eos % (Auto) 1.3 Baso % (Auto) 0.2 Lymph # (Auto) 2.7 [place] # (Auto) 1.0 H Eos # (Auto) 0.2 Baso # (Auto) 0.0 Seg Neutrophils % 69.0 Seg Neutrophils # 8.6 H Sodium 135 L Potassium 3.8 Chloride 102.2 Carbon Dioxide 22 Anion Gap 15 BUN 11 Creatinine 0.6 Estimated GFR > 60 BUN/Creatinine Ratio 18 Glucose 100 Calcium 9.2 Total Bilirubin 0.30 AST 14 ALT 13 Alkaline Phosphatase 62 Total Protein 7.6 Albumin 3.9 Albumin/Globulin Ratio 1.1 HCG, Quant 320.5 H Urine Color Urine Turbidity Urine pH Ur Specific Zap Urine Protein Urine Glucose (UA) Urine Ketones Urine Blood Urine Nitrite Urine Bilirubin Urine Urobilinogen Ur Leukocyte Esterase Urine WBC (Auto) Urine RBC (Auto) U Epithel Cells (Auto) Urine Mucus Blood Type Ord Rhogam Gestat Weeks 10/07/21 10/07/21 09:20 11:32 WBC RBC Hgb Hct MCV MCH MCHC RDW Plt Count Lymph % (Auto) [place] % (Auto) Eos % (Auto) Baso % (Auto) Lymph # (Auto) [place] # (Auto) Eos # (Auto) Baso # (Auto) Seg Neutrophils % Seg Neutrophils # Sodium Potassium Chloride Carbon Dioxide Anion Gap BUN Creatinine Estimated GFR BUN/Creatinine Ratio Glucose Calcium Total Bilirubin AST ALT Alkaline Phosphatase Total Protein Albumin Albumin/Globulin Ratio HCG, Quant Urine Color Yellow Urine Turbidity Clear Urine pH 6.0 Ur Specific Zap 1.020 Urine Protein <15 mg/dl Urine Glucose (UA) Neg Urine Ketones Neg Urine Blood Lg Urine Nitrite Neg Urine Bilirubin Neg Urine Urobilinogen < 2.0 Ur Leukocyte Esterase Neg Urine WBC (Auto) 29.0 H Urine RBC (Auto) 72.0 U Epithel Cells (Auto) 1.0 Urine Mucus Few Blood Type O POSITIVE Ord Rhogam Gestat Weeks Rh pos - Radiology Data Radiology results: report reviewed Patient: TRANG MUSE MR#: [id number] : 1990 Acct:[id number] Age/Sex: 30 / F ADM Date: 10/07/21 Loc: ED Attending Dr: Ordering Physician: SOL SANCHES Date of Service: 10/07/21 Procedure(s): US OB transvaginal Accession Number(s): [id number] cc: SOL SANCHES OB Ultrasound HISTORY: LOWer abd pain/preg/spotting/[facility] 07/2021. TECHNIQUE: Grayscale and color imaging performed. COMPARISON: None FINDINGS: Uterus measures 7.5 x 4.3 x 4.5 cm with no intrauterine gestation identified. The ovaries are unremarkable with small follicles. There is a small to moderate amount of simple pelvic free fluid. IMPRESSION: No acute abnormality or intrauterine gestation identified. Small to moderate volume simple pelvic free fluid could be physiologic in a woman of this age. Signer Name: Jayden Crouch MD Signed: 10/07/2021 12:51 PM Workstation Name: [id number] Transcribed By: JW Dictated By: Jayden Crouch MD Electronically Authenticated By: Jayden Crouch MD Signed Date/Time: 10/07/21 1251 DD/ 1250 TD/TT: - Medical Decision Making 1319: CBC and CMP shows no significant abnormality.. Urinalysis showed possible UTI. Culture is pending. Patient Rh is O+ and therefore no indication for RhoGam. Quantitative hCG measured as 320.5. OB ultrasound showedIMPRESSION: No acute abnormality or intrauterine gestation identified. Small to moderate volume simple pelvic free fluid could be physiologic in a woman of this age. Upon reviewing results with patient, she then mentions that she actually had a quant hCG done at [facility] on Friday and it measured at 940. She then returned to [place] this morning and she had another quant which measured at 440 and she also had an ultrasound which did not show any intrauterine . She states that she was told she was . She states that she did not believe that diagnosis and therefore that is why she came here to the ER for second opinion. Given that patient quantitative hCG is dropping, informed patient that she is likely having a miscarriage. She has an appointment with [facility] next Friday which I recommend that she keeps. Overall patient is not toxic or in any significant distress. She had a nonsurgical abdominal exam. She is not hemorrhaging. Her vital signs are stable. Her gait is normal and she is neurologically intact. Patient expressed understanding of all instructions and agree with plan. Patient stable at time of discharge. Critical care attestation.: If time is entered above; I have spent that time in minutes in the direct care of this critically ill patient, excluding procedure time. ED Disposition Clinical Impression: Miscarriage, UTI (urinary tract infection) Disposition: HOME / SELF CARE / HOMELESS Is pt being admited?: No Condition: Stable Instructions: Miscarriage, [id number], Urinary Tract Infection, Adult, [id number], Antibiotic Medicine, Adult Additional Instructions: Your quant hCG today is 320.5 . I recommend that you keep your appointment with your [facility] for this coming Friday. You can take Tylenol for pain. Take antibiotic as prescribed for UTI. Return to the ER if your symptoms changes or worsens in any way. Prescriptions: cephALEXin [Keflex] 500 mg PO Q8HR #21 cap Referrals: ZENY HAWKINS MD [Primary Care Provider] - 3-5 Days Time of Disposition: 12:44
[2021-10-07 10:12] LABS: Basophils % (Auto) 0.2 % (0.0-1.8); Eosinophils # (Auto) 0.2 K/mm3 (0.0-0.4); Eosinophils % (Auto) 1.3 % (0.0-4.3); Hematocrit 38.2 % (30.3-42.9); Hemoglobin 12.9 gm/dl (10.1-14.3); Lymphocytes # (Auto) 2.7 K/mm3 (1.2-5.4); Lymphocytes % (Auto) 21.8 % (13.4-35.0); Mean Corpuscular HGB Conc 34 % (30-34); Mean Corpuscular Volume 89 fl (79-97); Monocytes % (Auto) 7.7 % (0.0-7.3); Platelet Count 321 K/mm3 (140-440); Red Blood Count 4.29 M/mm3 (3.65-5.03); Red Cell Distribution Width 14.3 % (13.2-15.2)
[2021-10-07 10:30] LABS: Alanine Aminotransferase 13 units/L (7-56); Albumin 3.9 g/dL (3.9-5); Blood Urea Nitrogen 11 mg/dL (7-17); Calcium 9.2 mg/dL (8.4-10.2); Hemolysis Index 6
[2021-10-07 10:32] LABS: BUN/Creatinine Ratio 18
[2021-10-07 11:52] LABS: Bilirubin,Urine NEG (Negative); Blood,Urine LG (Negative); Color,Urine Yellow (Yellow); Mucus,Urine FEW /HPF; Protein,Urine <15 mg/dL mg/dL (Negative); Urobilinogen,Urine < 2.0 mg/dL (<2.0)
--- NOTE | 2021-10-07 12:55 | Ultrasound Report ---
OB Ultrasound HISTORY: LOWer abd pain/preg/spotting/[facility] 07/2021. TECHNIQUE: Grayscale and color imaging performed. COMPARISON: None FINDINGS: Uterus measures 7.5 x 4.3 x 4.5 cm with no intrauterine gestation identified. The ovaries are unremarkable with small follicles. There is a small to moderate amount of simple pelv ic free fluid. IMPRESSION: No acute abnormality or intrauterine gestation identified. Small to moderate volume simpl e pelvic free fluid could be physiologic in a woman of this age. Signer Name: Jayden Crouch MD Signed: 10/07/2021 12:51 PM Workstation Name: [id number]
== END 2021-10-07 13:08 | disposition home or self-care (01) ==
LOC: ED 08:31
DX: O03.9 Complete or unspecified spontaneous abortion without complication (principal); O23.41 Unspecified infection of urinary tract in pregnancy, first trimester; Z3A.01 Less than 8 weeks gestation of pregnancy; F17.200 Nicotine dependence, unspecified, uncomplicated; J45.909 Unspecified asthma, uncomplicated
CPT/HCPCS: 36415; 76817; 80053; 81001; 84702; 85025; 86900; 86901; 87086; 99284